=== PATIENT | female | born 1985 | race Caucasian/White ===

== ENCOUNTER 2025-01-28 20:11 | Emergency (ER) | payer MEDICAID, SELFPAY ==
--- OUTSIDE RECORDS SUMMARY | 2025-01-28 20:13 | XMS_ITS | Encounter Summary ---
Author Organization [facility] Address [address] [facility] [place] [address] Care Team Providers Care Entertainment Agent Name Role Phone Lenny Ferrara MD Primary Care Provider [phone] Lenny Ferrara MD Unavailable Sadaf Grider CN Unavailable [phone] Amparo Henderson FARM FIELD MANAGER Unavailable [phone] Encounter Details Date Type Department Care Team (Late st Contact Info) Description 06/07/2024 MyC Medical Advice Initial Department [facility] Social History Tobacco Use Types Packs/Day Years Used Date Smoking Tobacco: Some Days Cigarettes Smokeless Tobacco: Never Alcohol Use Standard Drinks/Week Comments Not Currently 0 (1 standard drink = 0.6 oz pur e alcohol) Social Connection and Isolation Panel [NHANES] A nswer Date Recorded Frequency of Communication with Friends and Fami ly Not on file 06/07/2024 How often do you get together with friends or re latives? Once a week 06/07/2024 Attends Caodaism Services Not on file 06/07 Active Member of Clubs or Organizations Not on f ile 06/07/2024 Attends Club or Organization Meetings Not on evelin e 06/07/2024 Marital Status Not on file 06/07/2024 PHQ-2 Answer Date Recorded PHQ-2 Score 0 05/24/2024 [facility] - Occupational Stress Questionnaire Answer Date Recorded Do you feel stress - tense, restless, nervous, or anxious, or unable to sleep at night because your mind is troubled all the time - these days? Only a little 06/07/2024 Exercise Vital Sign Answer Date Recorde d On average, how many days pe r week do you engage in moderate to strenuous exercise (like a brisk walk)? 3 days 06/07/2024 On average, how many minutes do you engage in exercise at this level? 20 min 06/07/2024 Adolescent Education Answer Date Record ed Getting School Help Needed Not on file 08/19 Food Insecurity Answer Date Recorded Within the past 12 months, d id you worry that your food would run out before you got money to buy more? No 06/07/2024 Within the past 12 months, d id the food you bought just not last and you didn t have money to get more? No 06/07/2024 Housing Stability Answer Date Recorded Do you have housing? (Nathaniel michaud is defined as stable permanent housing and does not include staying ouside in a car, in a tent, in an abandoned building, in an overnight assisted, or couch-surfing.) Yes 06/07/2024 Are you worried about losing your housing? No 06/07/2024 Financial Resource Strain Answer Date R ecorded Within the past 12 months, h ave you or your family members you live with been unable to get utilities (heat, electricity) when it was really needed? No 06/07/2024 Transportation Needs Answer Date Record ed Within the past 12 months, h as lack of transportation kept you from medical appointments, getting your medicines, non-medical meetings or appointments, work, or from getting things that you need? 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 Not on file Not on file Not on file documented as of this encounter Plan of Treatment Not on file documented as of this encounter Visit Diagnoses Not on filedocumented in this encounter Additional Health Concerns Assessment Noted Time PHQ-9 Depression Total Score: 0 05/23/20 24 3:57 PM CDT documented as of this encounter Care Teams Entertainment Agent Relationship Specialty [place] [id number] [place] [address] PCP - General Family Medicine 12/03/20 [place] [id number] [place] [address] Assigned PCP 12/06/20 07/04/24 Sadaf Grider CNM [address] [id number] Assigned OBGYN Provider 05/20/23 Amparo Henderson, FARM FIELD MANAGER [address] [place], [place] [id number] Assigned PCP 07/05/24 documented as of this encounter
--- OUTSIDE RECORDS SUMMARY | 2025-01-28 20:13 | XMS_ITS | Clinical Summary ---
Author Organization [facility] Address [address] [place] [address] Care Team Providers Care Summer Associate Name Role Phone Kamini Ruff BUSINESS SYSTEMS TECHNICIAN Unavailable [phone] Thu Esparza Primary Care Provider [phone] Allergies Active Allergy Reactions Criticality Noted Date Comments Oxycodone-Acetaminophen Rash,Itching 11/24/2008 Medications traZODone (DESYREL) 50 mg tablet Take 1 tablet by mouth at bedtime. 0 06/05/2012 Active lamoTRIgine (LAMICTAL) 25 mg tablet 12/19/2015 Active VITAMIN D2 50,000 unit capsuleIndicati ons:Avitaminosi s D Take 1 capsule by mouth every Monday and . 8 capsule 2 02/13/2017 Active escitalopram oxalate (LEXAPRO) 20 mg tabletIndicatio ns:Alcoholism (HC) Take 1 tablet by mouth every morning. 90 tablet 1 05/08/2017 Active lamoTRIgine (LAMICTAL) 150 mg tabletIndicatio ns:Alcoholism (HC) Take 1 tablet by mouth once daily. 90 tablet 1 05/08/2017 Active traZODone (DESYREL) 50 mg tabletIndicatio ns:Alcoholism (HC) Take 1 tablet by mouth at bedtime if needed for Sleep. 90 tablet 1 05/08/2017 Active HYDROmorphone (DILAUDID) 2 mg tabletIndicatio ns:Cat bite, initial encounter Take 1 tablet by mouth every 4 hours if needed for Pain (for severe pain and discomfort.) 7 tablet 12/02/2017 Active HYDROcodone-vanda taminophen, 5-325 mg, (NORCO) per tablet Take 1-2 tablets by mouth 12/05/2017 Active Hospital, Clinic, or Other Facility Administered Medication Ordered Dose Route Frequency Start Date End Date Status levonorgestrel intrauterine device 1 Device (MIRENA)Indications:Encounter for IUD removal and reinsertion,Contraceptive use 1 Device IU Q 5 YEARS 02/14/2017 Active Active Problems Problem Noted Date Diagnosed Date Alcoholism 05/08/2017 Bipolar affective disorder 05/08/2017 Low grade squamous intraepit helial lesion (LGSIL) on cervical Pap smear 03/30/2016 Overview (03/02/2017): 03/30/2016 LSIL / HPV negative 02/13/2017 NIL / HPV negative Plan: Repeat cotesting in 3 years (DUE 02/2020) 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 Renal disease ranged from microscopic hematuria to end-stage renal failure necessitating dialysis and kidney transplantation. All affected adults had cataracts. 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 1985 b;65(2):397-406). Anxiety state, unspecified 12/20/2012 Contraception - Mirena IUD 02/21/2012 Overview (02/13/2017): New iud placed 02/13/17 good until 02/13/2022 Resolved Problems Problem Noted Date Diagnosed Date Resolved Date Screening for cardiovascular condition 03/24/2016 02/13/2017 Overview (03/24/2016): 03/23/2016 TC 191; TG 166; HDL 57; LDL 101; GLUC 97 Major depressive disorder, s jill episode, unspecified 12/20/2012 02/13/2017 Screening for cervical cancer 02/13/2017 Overview (04/05/2016): 02/26/2016 PAP LSIL; HPV NEG - repeat cotesting in 1 year Immunizations Immunization Administration Dates Next Due Rabavert 12/02/2017 Tdap 07/20/2010 Family History Medical History Relation Name Comments Good Health Father Blood Disease Mother Fechtner syndr ome Relation Name Status Comments Father Mother Social History Tobacco Use Types Packs/Day Years Used Date Smoking Tobacco: Some Days Cigarettes Last attempted to quit: 01/22/2016 Smokeless Tobacco: Never Tobacco Cessation:Counseling Given: Yes Alcohol Use Standard Drinks/Week Comments Yes 0 (1 standard drink = 0.6 oz pur e alcohol) social Comments No Sex and Gender Information Value Date Recorded Sex Assigned at Not on file Legal Sex Female 5:27 AM HOOP 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 Gender Identity Not on file Sexual Orientation Not on file Obstetrics History Para Term AB IAB SAB Ectopic Multiple Livin g Live Births 2 1 0 0 1 0 1 0 0 1 1 Date Outcome GA Total Labor Labor/2nd/3rd Weight Sex Type Anes PTL Hien A1 A5 Name Clin 004 SAB 2006 Para 4.25 kg (9 lb 6 oz) F C-Sec tion N Living Complications:Failure to Pro raven in Second Stage, Intolerance Last Filed Vital Signs Vital Sign Reading Time Taken Comments Blood Pressure 118/82 02/26/2018 5:50 PM CDT Pulse 78 02/26/2018 5:50 PM CDT Temperature 36.3 C (97.3 F) 12/01/2017 11:01 PM HOOP 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 Respiratory Rate 18 02/26/2018 5:50 PM CDT Oxygen Saturation 98% 02/26/2018 5:50 PM CDT Inhaled Oxygen Concentration - - Weight 96.8 kg (213 lb 6.4 oz) 12/01/2017 11:01 PM HOOP 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 Height 175.3 cm (5' 9) 12/01/2017 11:01 PM HOOP 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 Body Mass Index 31.51 12/01/2017 11:01 PM HOOP 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 Plan of Treatment Health Maintenance Due Date Last Done Comments Hepatitis C screening for age 18-79 2001 BMI (ht and wt on same day) for age 18+ 03/23/2017 03/23/2016 Depression screening for age 12+ 05/08/2018 05/08/2017, 02/13/2017, 02/13/2017, Additional history exists Tetanus booster 10/13/2021 10/13/2011, 07/20/2010 COVID-19 vaccine series (2023- season) 2024 12/17/2021, 11/26/2021 Influenza Vaccine (#1) 2024 Pap test for age 21-65 08/05/2024 (Verified in Care Everywhere or Patient Record), 02/13/2017, 02/13/2017, Additional history exists Tdap Completed 07/20/2010 HIV for age 15-65 Completed 2014 Pneumococcal series for age 6-49 Aged Out No longer eligible based on patient's age to complete this topic Procedures Procedure Name Priority Date/Time Associated Diagnosis Comments MANAGER HEAVY DUTY THIN PREP PAP DIAGNOSTIC IMAGED Routine 02/13/2017 2:18 PM CDT Low grade squamous intraepithelial lesion (LGSIL) on cervical Pap smear ANTI HIV 1/2 Routine 2014 1:45 PM CDT Screen for STD (sexually transmitted disease) from Last 3 Months or Most Recently Relevant to Health Maintenance Results * MANAGER HEAVY DUTY THIN PREP PAP DIAGNOSTIC IMAGED (02/13/2017 2:18 PM CDT) Case Report Gynecologic Cytology Report Case: [id number] Authorizing Provider: Thu Esparza NP Collected: 02/13/2017 1418 Ordering Location: [facility] Received: 02/13/2017 1419 First Screen: Gloria Castaneda Rescreen: Hitesh Beverly Specimen: MANAGER HEAVY DUTY ThinPrep Vial Diagnostic, Cervical 02/28/2017 1:43 PM CDT [facility] EN[facility]AL LABORAT[facility] INTERPRETATION/ RESULT NEGATIVE FOR INTRAEPITHELIAL LESION OR MALIGNANCY (NIL) (none) 02/28/2017 1:43 PM CDT [facility]AL [facility] IMEN ADEQUACY Satisfactory for evaluation Endocervical component present 02/28/2017 1:43 PM CDT [facility] HPV REQUEST HPV and PAP 02/28/2017 1:43 PM CDT [facility] Date of LMP 02/06/2017 02/28/2017 1:43 PM CDT [facility] Last Pap Date 03/30/16 02/28/2017 1:43 PM CDT [facility] Last Pap Result LSIL 7 1:43 PM CDT [facility] Abnormal Pap or Magnolia Bx in last 5 years Yes 02/28/2017 1:43 PM CDT [facility] Menstrual Status Irregular Periods 02/28/2017 1:43 PM CDT [facility] Magnolia Bx Done Today No 02/28/2017 1:43 PM CDT [facility] Additional Information None Given 02/28/2017 1:43 PM CDT [facility] Automated Review Successful 02/28/2017 1:43 PM CDT [facility] Comment:Specimen processed s uccessfully by automated compressor station engineer device, ThinPrep Imaging System, [employer] ANCILLARY TESTING MANAGER HEAVY DUTY HPV Ordered, Please see separate report 02/28/2017 1:[address] [facility] Note The pap test is a screening technique, not a diagnostic procedure. It is used primarily to screen for squamous cancers and precursor lesions. Published studies have shown that it is subject to both false negative and false positive results. The pap test should not be used as the sole means to diagnose or exclude pre-malignant and malignant lesions. Interpreted at [facility] ([facility], [facility], [facility], [facility], [facility], [facility], [facility]) 02/28/2017 1:43 PM CDT [facility] Other (Cervical) 02/13/2017 2:18 PM CDT 02/13/2017 2:19 PM CDT us Thu Ramos Vilma PATHOLOGY/CYTOLOGY Final Resu lt [facility] [address] [place] [address], [place] * ANTI HIV 1/2 (2014 1:45 PM CDT) HIV-1/HIV-2 ANTIBODY Non-Reacti ve Non-Reacti ve 03/05/2014 1:44 AM CDT [facility] Blood specimen (specimen) BLOOD SPECIMEN / Unknown Venipuncture / Unknown 2014 1:45 PM CDT 2014 1:45 PM CDT Narrative [facility] - 03/05/2014 1:44 AM CDT HIV-1 p24 and HIV-1/HIV-2 Ab not detected us Eladia Dong MD SEND OUTS Final Result Performing Organization Address City/[facility]/ZIP Co de Phone Number [facility] [address] [place] [address], from Last 3 Months or Most Recently Relevant to Health Maintenance Insurance [phone] [place] [address] [facility] [phone] [place] [address] [employer] [phone] [place] [address] Care Teams Summer Associate Relationship Specialty Start Date End Date Thu Esparza [address] [place] [phone] PCP - General Nurse Practitioner 02/13/17 Kamini Ruff NP [address] [place] [phone] Consulting Physician Nurse Practitioner 03/23/16
--- OUTSIDE RECORDS SUMMARY | 2025-01-28 20:13 | XMS_ITS | Encounter Summary ---
Author Organization [place] Address [facility] [place] [address] Care Team Providers Care Orthopedic Physician Name Role Phone Inocencio Dove MD Unavailable [phone] JosiasLenny michaud MD Primary Care Provider eLnny Ferrara MD Unavailable Sadaf Grider [facility] Unavailable Amparo Henderson [facility] Unavailable [phone] Reason for Visit * Reason Onset Date Comments MyChart Communication 12/03/2020 Encounter Details Date Type Department Care Team (Latest Contact Info) Description 12/03/2020 MyC Medical Advice [facility] [id number] [place] [phone] [place] [id number] [place] [phone] MyChart Communication Social History Tobacco Use Types Packs/Day Years Used Date Smoking Tobacco: Some Days Cigarettes Smokeless Tobacco: Never Alcohol Use Standard Drinks/Week Comments Yes 0 (1 standard drink = 0.6 oz pur e alcohol) every day PHQ-2 Answer Date Recorded PHQ-2 Score 0 12/03/2020 Comments No Sex and Gender Information Value Date Recorded Sex Assigned at Not on file Legal Sex Female 3:36 AM CHECK TOTALER Gender Identity Not on file Sexual Orientation Not on file 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 Unable to assess 12/03/2020 1:59 PM CHECK TOTALER documented as of this encounter Plan of Treatment Not on file documented as of this encounter Visit Diagnoses Not on filedocumented in this encounter Additional Health Concerns Infection Onset Date Last Indicated Resolved Time Rule Out COVID-19 12/03/2020 12/03/2020 12/04/2020 3:31 PM CHECK TOTALER Rule Out COVID-19 11/08/2021 11/08/2021 11/09/2021 1:58 PM CHECK TOTALER Assessment Noted Time PHQ-9 Depression Total Score: 2 12/03/19 11:01 AM CHECK TOTALER documented as of this encounter Care Teams Orthopedic Physician Relationship Specialty Start [place] [address] [place] [address] PCP - General Family Medicine 12/03/20 Inocencio Dove MD [address] [place] [address] Assigned PCP 09/30/18 12/05/20 [place] [address] [place] [address] Assigned PCP 12/06/20 07/04/24 Sadaf Grider CNM [address] [address] Assigned OBGYN Provider 05/20/23 Amparo Henderson REINFORCED CONCRETE INSPECTOR [address] [place] [address] Assigned PCP 07/05/24 documented as of this encounter
--- OUTSIDE RECORDS SUMMARY | 2025-01-28 20:13 | XMS_ITS | Clinical Summary ---
Author Organization [place] Address [address] [facility] [place] [address] Care Team Providers Care Waste Management Engineer Name Role Phone Lneny Ferrara MD Primary Care Provider [phone] Amparo Henderson [facility] Unavailable [phone] Allergies Active Allergy Reactions Criticality Noted Date Comments Aspirin Other (See Comments) 11/04/2010 Low platelets Oxycodone Itching 06/14/2024 Medications lamoTRIgine (LAMICTAL) 150 MG tablet Take 150 mg by mouth every evening Active escitalopram (LEXAPRO) 20 MG tablet Take 20 mg by mouth every evening Active hydrOXYzine (ATARAX) 50 MG tablet TK 1 TO 1 AND 1/2 TS PO HS PRF INSOMNIA 06/02/20 20 Active levonorgestrel (MIRENA) 20 MCG/DAY IUDIndications:En counter for insertion of intrauterine contraceptive device 1 each (20 mcg) by Intrauterine route once Active levonorgestrel (MIRENA) 52 MG (20 mcg/day) IUDIndications:En counter for insertion of intrauterine contraceptive device 1 each by Intrauterine route once Active albuterol (PROAIR HFA/PROVENTIL HFA/VENTOLIN HFA) 108 (90 Base) MCG/ACT inhaler Inhale 2 puffs into the lungs 4 times daily as needed 03/04/20 24 Active ALPRAZolam (XANAX) 0.25 MG tablet Take 0.25 mg by mouth nightly as needed 05/04/20 24 Active cyclobenzaprine (FLEXERIL) 5 MG tablet Take 5 mg by mouth 2 times daily as needed for muscle spasms 11/28/19 24 Active hydrOXYzine (VISTARIL) 50 MG capsule Take 50 mg by mouth at bedtime 05/29/20 24 Active Active Problems Problem Noted Date Diagnosed Date Thrombocytopenia 04/21/2013 Overview (08/14/2015): Problem list name updated by automated process. Provider to review Family history of hypercholesterolemia 2 Moderate major depression 11/04/2010 CARDIOVASCULAR SCREENING; LDL GOAL LESS THAN 160 09/12/2010 Anxiety 04/20/2010 ASCUS on Pap smear 07/31/2008 Overview (08/13/2021): 07/31/08 ASCUS + HPV 12/22/08 [place] atypia 02/21/12 NIL pap 03/30/16 LSIL Pap, Neg HR HPV (care everywhere) 02/13/17 NIL Pap, Neg HR HPV (care everywhere) 08/05/21 NIL Pap, Neg HR HPV Plan 3 year cotest. Immunizations Name Administration Dates Next Due COVID-19 MONOVALENT 12+ (Pfizer) 12/17/2021,11/13 HepB 09/09/2010,07/26/2010 Hepatitis B, Adult (Energix- B/Recombivax HB) 06/14/2024,09/09/2010,07/26/2010 Influenza (IIV3) PF 09/22/2014,08/19/2010 Rabies Vaccine (Imovax) 12/15/2017,12/08/2017, Rabies Vaccine (Rabavert) 12/02/2017 TDAP Vaccine (Adacel) 12/02/2017,07/20/2010 Family History Medical History Relation Comments Family History Negative Other Relation Status Comments Father Alive Mother Alive Other Sister Alive Social History Tobacco Use Types Packs/Day Years Used Date Smoking Tobacco: Some Days Cigarettes Smokeless Tobacco: Never Tobacco Cessation:Ready to Q uit: Not Asked; Counseling Given: Not Answered Alcohol Use Standard Drinks/Week Comments Not Currently 0 (1 standard drink = 0.6 oz pur e alcohol) Social Connection and Isolation Panel [NHANES] A nswer Date Recorded Frequency of Communication with Friends and Fami ly Not on file 06/14/2024 How often do you get together with friends or re latives? Once a week 06/14/2024 Attends Scientology Services Not on file 06/14 Active Member of Clubs or Organizations Not on f ile 06/14/2024 Attends Club or Organization Meetings Not on evelin e 06/14/2024 Marital Status Not on file 06/14/2024 PHQ-2 Answer Date Recorded PHQ-2 Score 0 07/26/2024 [facility] - Occupational Stress Questionnaire Answer Date Recorded Do you feel stress - tense, restless, nervous, or anxious, or unable to sleep at night because your mind is troubled all the time - these days? To some extent 06/14/2024 Exercise Vital Sign Answer Date Recorde d On average, how many days pe r week do you engage in moderate to strenuous exercise (like a brisk walk)? 3 days 06/14/2024 On average, how many minutes do you engage in exercise at this level? 20 min 06/14/2024 Adolescent Education Answer Date Record ed Getting School Help Needed Not on file 08/19 Food Insecurity Answer Date Recorded Within the past 12 months, d id you worry that your food would run out before you got money to buy more? No 06/14/2024 Within the past 12 months, d id the food you bought just not last and you didn t have money to get more? No 06/14/2024 Housing Stability Answer Date Recorded Do you have housing? (Nathaniel g is defined as stable permanent housing and does not include staying ouside in a car, in a tent, in an abandoned building, in an overnight nursing home, or couch-surfing.) Yes 06/14/2024 Are you worried about losing your housing? No 06/14/2024 Financial Resource Strain Answer Date R ecorded Within the past 12 months, h ave you or your family members you live with been unable to get utilities (heat, electricity) when it was really needed? No 06/14/2024 Transportation Needs Answer Date Record ed Within the past 12 months, h as lack of transportation kept you from medical appointments, getting your medicines, non-medical meetings or appointments, work, or from getting things that you need? 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 Not on file Not on file Not on file Last Filed Vital Signs Vital Sign Reading Time Taken Comments Blood Pressure 124/78 06/14/2024 9:26 AM CDT Pulse 77 06/14/2024 9:26 AM CDT Temperature 36.9 C (98.4 F) 06/14/2024 9:26 AM CDT Respiratory Rate 18 06/14/2024 9:26 AM CDT Oxygen Saturation 96% 06/14/2024 9:26 AM CDT Inhaled Oxygen Concentration - - Weight 95.3 kg (210 lb) 06/14/2024 9:26 AM CDT Height 172.7 cm (5' 8) 06/14/2024 9:26 AM CDT Body Mass Index 31.93 06/14/2024 9:26 AM CDT Plan of Treatment Health Maintenance Due Date Last Done Comments Pneumococcal Vaccine: Pediatrics (0 to 5 Years) and At-Risk Patients (6 to 49 Years) (1 of 2 - PCV) 2002 ANNUAL REVIEW OF HM ORDERS 12/29/2023 12/29/2022, COVID-19 Vaccine ( season) 2024 12/17/2021, 11/26/2021 INFLUENZA VACCINE (#1) 2024 (Declined), 09/22/2014, 08/19/2010 HPV FOLLOW-UP 08/05/2024 08/05/2021 PAP FOLLOW-UP 08/05/2024 08/05/2021, 02/11, 07/31/2009 PHQ-9 01/23/2025 07/26/2024, 0712/2023, 12/29/2022, Additional history exists NICOTINE/TOBACCO CESSATION COUNSELING Q 1 YR 06/14/2025 06/14/2024, 08/05/2021, 04/18/2013 YEARLY PREVENTIVE VISIT 06/14/2025 06/14/2024, 08/05 MAMMO SCREENING 06/15/2026 06/15/2024 GLUCOSE 06/15/2027 06/15/2024, 07/15, 05/04/2017, Additional history exists DTAP/TDAP/TD IMMUNIZATION (3 - Td or Tdap) 12/02/2027 12/02/2017, 07/20/2010 ADVANCE CARE PLANNING 06/14/2029 06/14/2024 LIPID 06/15/2029 06/15/2024, 08/05/2021 ZOSTER IMMUNIZATION (1 of 2) 2033 DEPRESSION ACTION PLAN Completed 5, 01/19/2015, 04/21/2013, Additional history exists PAP Discontinued 08/05/2021, 02/11, 07/31/2009 HEPATITIS B IMMUNIZATION Completed 024, 09/09/2010, 09/09/2010, Additional history exists HEPATITIS C SCREENING Completed 06/15/2024 HIV SCREENING Discontinued 06/15/2024, 2014 HPV IMMUNIZATION Aged Out No longer e ligible based on patient's age to complete this topic MENINGITIS IMMUNIZATION Aged Out No l onger eligible based on patient's age to complete this topic Procedures Procedure Name Priority Date/Time Associated Diagnosis Comments MA SCREENING BILATERAL W/ SREEKANTH Routine 06/15/2024 10:45 AM CDT Visit for screening mammogram COMPREHENSIVE METABOLIC PANEL Routine 06/15/2024 10:19 AM CDT Encounter for preventive health examination Lipid screening HIV ANTIGEN ANTIBODY COMBO Routine 06/15/2024 10:19 AM CDT Screening for HIV (human immunodeficiency virus) HEPATITIS C SCREEN REFLEX TO HCV RNA QUANT AND GENOTYPE Routine 06/15/2024 10:19 AM CDT Need for hepatitis C screening test LIPID REFLEX TO DIRECT LDL PANEL Routine 06/15/2024 10:19 AM CDT Encounter for preventive health examination Lipid screening HPV HIGH RISK TYPES DNA CERVICAL Routine 08/05/2021 5:32 PM CDT Cervical cancer screening GYNECOLOGIC CYTOLOGY Routine 08/05/2021 5:32 PM CDT Cervical cancer screening from Last 3 Months or Most Recently Relevant to Health Maintenance Results * MA Screening Bilateral w/ Sreekanth (06/15/2024 10:45 AM CDT) Anatomical Region Laterality Modality Breast Bilateral Mammography Impressions 06/17/2024 8:12 AM CDT IMPRESSION: ACR BI-RADS Category 1: Negative BREAST CANCER SCREENING RECOMMENDATION: Routine yearly mammography beginning at age 40 or as discussed with your provider. The results and recommendations of this examination will be communicated to the patient. Roney Breaux MD Narrative 06/17/2024 8:12 AM CDT BILATERAL FULL FIELD DIGITAL SCREENING MAMMOGRAM WITH TOMOSYNTHESIS Performed on: 06/15/24 No comparisons were made when reading this study. Technique: This study was evaluated with the assistance of Computer-Aided Detection. Breast Tomosynthesis was used in interpretation. Findings: The breasts are heterogeneously dense, which may obscure small masses. There is no radiographic evidence of malignancy. us Lenny Ferrara MD IMG MAMMOGRAPHY ORDERABLES Final Result * HIV Antigen Antibody Combo (06/15/2024 10:19 AM CDT) HIV Antigen Antibody Combo Nonreactive Nonreactive 06/16/2024 4:43 PM CDT LABORATORY Comment:Negative HIV-1 p24 a ntigen and HIV-1/2 antibody screening test results usually indicate the absence of HIV-1 and HIV-2 infection. However, such negative results do not rule-out acute HIV infection. If acute HIV-1 or HIV-2 infection is suspected, detection of HIV-1 or HIV-2 RNA is recommended. Blood BLOOD SPECIMEN / Unknown Venipuncture / Unknown 06/15/2024 10:19 AM CDT 06/15/2024 10:19 AM CDT us Amparo Henderson [facility]EARCH & INSIGHTS EXECUTIVE LAB - BLOOD ORDERABLES Final R esult U LABORATORY [facility] [address] [facility], [address] [place] [phone], [facility] * Hepatitis C Screen Reflex to HCV RNA Quant and Genotype (06/15/2024 10:19 AM CDT) Hepatitis C Antibody Nonreactive Nonreactive 06/16/2024 3:25 PM CDT UU LABORATORY Comment:A nonreactive screen ing test result does not exclude the possibility of exposure to or infection with HCV. Nonreactive screening test results in individuals with prior exposure to HCV may be due to antibody levels below the limit of detection of this assay or lack of reactivity to the HCV antigens used in this assay. Patients with recent HCV infections (<3 months from time of exposure) may have false- negative HCV antibody results due to the time needed for seroconversion (average of 8 to 9 weeks). Blood BLOOD SPECIMEN / Unknown Venipuncture / Unknown 06/15/2024 10:19 AM CDT 06/15/2024 10:19 AM CDT us Amparo Henderson RESEARCH & INSIGHTS EXECUTIVE LAB - BLOOD ORDERABLES Final R esult [facility] LABORATORY [facility] Lab [address] [facility], [address] [address] * (ABNORMAL) Lipid panel reflex to direct LDL Fasting (06/15/2024 10:19 AM CDT) Cholesterol 205(H) <200 mg/dL 06/16/2024 3:13 PM CDT [facility] LABORATORY Triglycerides 146 <150 mg/dL 06/16/2024 3:13 PM CDT [facility] LAB[facility] Direct Measure HDL 60 >=50 mg/dL 06/16/2024 3:13 PM CDT [facility] LAB[facility]AT[facility] LDL Cholesterol Calculated 116(H) <=100 mg/dL 06/16/2024 3:13 PM CDT [facility] LAB[facility]ATORY Non HDL Cholesterol 145(H) <130 mg/dL 06/16/2024 3:13 PM CDT [facility] LAB[facility]ATORY Patient Fasting > 8hrs? No 06/16/2024 3:13 PM CDT OX LABORATORY Blood BLOOD SPECIMEN / Unknown Venipuncture / Unknown 06/15/2024 10:19 AM CDT 06/15/2024 10:19 AM CDT Narrative [facility] LAB[facility]ATORY - 06/16/2024 3:13 PM CDT Cholesterol Desirable: <200 mg/dL Triglycerides Normal: Less than 150 mg/dL Borderline High: 150-199 mg/dL High: 200-499 mg/dL Very High: Greater than or equal to 500 mg/dL Direct Measure HDL Female: Greater than or equal to 50 mg/dL Male: Greater than or equal to 40 mg/dL LDL Cholesterol Desirable: <100mg/dL Above Desirable: 100-129 mg/dL Borderline High: 130-159 mg/dL High: 160-189 mg/dL Very High: >= 190 mg/dL Non HDL Cholesterol Desirable: 130 mg/dL Above Desirable: 130-159 mg/dL Borderline High: 160-189 mg/dL High: 190-219 mg/dL Very High: Greater than or equal to 220 mg/dL us Amparo Hnederson RESEARCH [facility] INSIGHTS EXECUTIVE LAB - BLOOD ORDERABLES Final R esult [facility] LABORATORY [facility] Core Lab [address] [facility], [address] [place] [address], [facility] OX LABORATORY [facility] [address] Lab (no room number, 1st floor of clinic) [place] [address], [facility] [phone] * Comprehensive metabolic panel (BMP + Alb, Alk Phos, ALT, AST, Total. Bili, TP) (06/15/2024 10:19 AMCDT) Sodium 138 135 - 145 mmol/L 06/16/2024 3:13 PM CDT [facility] LABORATORY Potassium 4.3 3.4 - 5.3 mmol/L 06/16/2024 3:13 PM CDT [facility] LAB[facility]ATORY Carbon Dioxide (CO2) 25 22 - 29 mmol/L 06/16/2024 3:13 PM CDT [facility] LAB[facility] Anion Gap 9 7 - 15 mmol/L 06/16/2024 3:13 PM CDT [facility] Urea Nitrogen 11.0 6.0 - 20.0 mg/dL 06/16/2024 3:13 PM CDT [facility] LAB[facility] Creatinine 0.73 0.51 - 0.95 mg/dL 06/16/2024 3:13 PM CDT [facility] LAB[facility] GFR Estimate >90 >60 mL/min/1.7 3m2 06/16/2024 3:13 PM CDT [facility] LABORATORY Comment:eGFR calculated 2020 CKD-EPI equation. Calcium 9.1 8.8 - 10.4 mg/dL 06/16/2024 3:13 PM CDT [facility] LAB[facility]ATORY Comment:Reference intervals for this test were updated on 05/28/2024 to reflect our healthy population more accurately. There may be differences in the flagging of prior results with similar values performed with this method. Those prior results can be interpreted in the context of the updated reference intervals. Chloride 104 98 - 107 mmol/L 06/16/2024 3:13 PM CDT [facility] Glucose 85 70 - 99 mg/dL 06/16/2024 3:13 PM CDT [facility] Alkaline Phosphatase 89 40 - 150 U/L 06/16/2024 3:13 PM CDT [facility] AST 19 0 - 45 U/L 06/16/2024 3:13 PM CDT [facility] ALT 19 0 - 50 U/L 06/16/2024 3:13 PM CDT [facility] LAB[facility] Protein Total 6.8 6.4 - 8.3 g/dL 06/16/2024 3:13 PM CDT [facility] Albumin 4.1 3.5 - 5.2 g/dL 06/16/2024 3:13 PM CDT [facility] Bilirubin Total 0.3 <=1.2 mg/dL 06/16/2024 3:13 PM CDT [facility] LAB[facility]AT[facility] Patient Fasting > 8hrs? No 06/16/2024 3:13 PM CDT OX LABORATORY Blood BLOOD SPECIMEN / Unknown Venipuncture / Unknown 06/15/2024 10:19 AM CDT 06/15/2024 10:19 AM CDT us Amparo Henderson RESEARCH & INSIGHTS EXECUTIVE LAB - BLOOD ORDERABLES Final R esult [facility]U LABORATORY [facility] [address] [facility], [address] [place] [address], [facility] OX LABORATORY [facility] Lab [address] Lab (no room number, 1st floor of clinic) [place] [address], [facility] [phone] * Pap Screen with HPV - recommended age 30 - 65 years (08/05/2021 5:32 PM CDT) Interpretation Negative for Intraepithelial Lesion or Malignancy (NILM) 08/10/2021 1:17 PM CDT [facility] LABORATORY Specimen Adequacy Satisfactory for evaluation, endocervical/abrams sformation zone component present 08/10/2021 1:17 PM CDT [facility] LABORATORY Clinical Information none 08/10/2021 1:17 PM CDT [facility] LABORATORY Reflex Testing Yes regardless of result 08/10/2021 1:17 PM CDT [facility] LABORATORY Previous Abnormal? No 08/10/2021 1:17 PM CDT [facility] Performing Labs The technical component of this testing was completed at [facility] Laboratory 08/10/2021 1:17 PM CDT [facility] LABORATORY Brushing CERVIX UTERI STRUCTURE / Unknown Non-blood Collection / Unknown 08/05/2021 5:32 PM CDT 08/05/2021 6:26 PM CDT us [facility] Final Result [facility] [address] [place] [address], [facility] [phone] * HPV High Risk Types DNA Cervical (08/05/2021 5:32 PM CDT) Other HR HPV Negative Negative 08/12/2021 1:44 PM CDT [facility] HPV16 DNA Negative Negative 08/12/2021 1:44 PM CDT [facility] HPV18 DNA Negative Negative 08/12/2021 1:44 PM CDT [facility] FINAL DIAGNOSIS This patient's sample is negative for HPV DNA. This test was developed and its performance characteristics determined by the [facility]. It has not been cleared or approved by the FDA. The laboratory is regulated under CLIA as qualified to perform high-complexity testing. This test is used for clinical purposes. It should not be regarded as investigational or for research. METHODOLOGY: The Brittani Elmer 4800 system uses automated extraction, simultaneous amplification of HPV (L1 region) and beta-globin, followed by real time detection of fluorescent labeled HPV and beta globin using specific oligonucleotide probes. The test specifically identified types HPV 16 DNA and HPV 18 DNA while concurrently detecting the rest of the high risk types (31, 33, 35, 39, 45, 51, 52, 56, 58, 59, 66 or 68). COMMENTS: This test is not intended for use as a screening device for woman under age 30 with normal cervical cytology. Results should be correlated with cytologic and histologic findings. Close clinical followup is recommended. 08/12/2021 1:44 PM CDT [facility] Brushing CERVIX UTERI STRUCTURE / Unknown Non-blood Collection / Unknown 08/05/2021 5:32 PM CDT 08/11/2021 7:56 AM CDT us Lenny Ferrara MD LAB - BLOOD ORDERABLES Final Res ult [facility] Molecular Diagnostics Lab [address] [facility], [address] [place] [address], [facility] [phone] from Last 3 Months or Most Recently Relevant to Health Maintenance Insurance [facility] COMMERCIAL [employer] Care Teams Waste Management Engineer Relationship Specialty [place] [address] [place] [address] PCP - General Family Medicine 12/03/20 Amparo Henderson RESEARCH & INSIGHTS EXECUTIVE [address] [place] [address] Assigned PCP 07/05/24
--- OUTSIDE RECORDS SUMMARY | 2025-01-28 20:13 | XMS_ITS | Encounter Summary ---
Author Organization [place] Address [facility] [place] [address] Care Team Providers Care Silviculture Forester Name Role Phone Lenny Ferrara MD Primary Care Provider Lenny Ferrara MD Unavailable Sadaf Grider [facility] Unavailable [phone] Amparo Henderson [facility] Unavailable [phone] Reason for Visit * Reason Onset Date Comments Appointment 07/21/2022 IUD put in Encounter Details Date Type Department Care Team (Late st Contact Info) Description 07/21/2022 Telephone [facility] [id number] [place] [phone] [place] [address] [place] [address] Appointment (IUD put in) Social History Tobacco Use Types Packs/Day Years Used Date Smoking Tobacco: Some Days Cigarettes Smokeless Tobacco: Never Alcohol Use Standard Drinks/Week Comments Not Currently 0 (1 standard drink = 0.6 oz pur e alcohol) PHQ-2 Answer Date Recorded PHQ-2 Score 0 08/05/2021 Comments No Sex and Gender Information Value Date Recorded Sex Assigned at Not on file 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 Gender Identity Not on file Sexual Orientation Not on file 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 Yes Additional comments: needs before 09/01 due to surgery Can we leave a detailed message on this number? YES Phone number patient can be reached at: Home number on file [phone] (home) Best Time: anytime mid or Fridays Call taken on 07/21/2022 at 11:06 AM by Kristy Emanuel documented in this encounter Plan of Treatment Not on file documented as of this encounter Visit Diagnoses Not on filedocumented in this encounter Additional Health Concerns Assessment Noted Time PHQ-9 Depression Total Score: 5 08/06/20 21 7:03 AM CDT documented as of this encounter Care Teams Silviculture Forester Relationship Specialty [place] [address] [place] [address] PCP - General Family Medicine 12/03/20 [place] [address] [place] [address] Assigned PCP 12/06/20 07/04/24 Sadaf Grider CNM [address] [address] Assigned OBGYN Provider 05/20/23 Amparo Henderson, SIZE WORKER [address] [place] [address] Assigned PCP 07/05/24 documented as of this encounter
--- OUTSIDE RECORDS SUMMARY | 2025-01-28 20:13 | XMS_ITS | Encounter Summary ---
Author Organization [place] Address [address] [place] [address] Care Team Providers Care Ceo & Board Director Name Role Phone Lenny Ferrara MD Primary Care Provider [phone] Lenny Ferrara MD Unavailable Sadaf Grider CN Unavailable [phone] Amparo Henderson HALL CLERK Unavailable [phone] Encounter Details Date Type Department Care [...] re latives? 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 Henderson Please see results for this patient as the lab results are critical Madyson Bustamante CMA on 06/15/2024 at 10:54 AM documented in this encounter Plan of Treatment Not on file documented as of this encounter Visit Diagnoses Not on filedocumented in this encounter Additional Health Concerns Assessment Noted Time PHQ-9 Depression Total Score: 0 05/23/20 3:57 PM CDT documented as of this encounter Care Teams Ceo & Board Director Relationship Specialty [place] [address] [place] [address] PCP - General Family Medicine 12/03/20 [place] [address] [place] [address] Assigned PCP 12/06/20 07/04/24 Sadaf Grider CNM [address] [id number] Assigned OBGYN Provider 05/20/23 Amparo Henderson, HALL CLERK [address] [place] [address] Assigned PCP 07/05/24 documented as of this encounter
--- OUTSIDE RECORDS SUMMARY | 2025-01-28 20:13 | XMS_ITS | Encounter Summary ---
Author Organization [place] Address [facility] [place] [address] Care Team Providers Care Surgery Tech Name Role Phone Lenny Ferrara MD Primary Care Provider [phone] Lenny Ferrara MD Unavailable Sadaf Grider [facility] Unavailable Amparo Henderson [facility] Unavailable [phone] Encounter Details Date Type Department Care Team (Late st Contact Info) Description 07/27/2021 MyC Medical Advice [facility] [id number] [place] [phone] [place] [id number] [place] [address] Social History Tobacco Use Types Packs/Day Years Used Date Smoking Tobacco: Some Days Cigarettes Smokeless Tobacco: Never Alcohol Use Standard Drinks/Week Comments Yes 0 (1 standard drink = 0.6 oz pur e alcohol) every day PHQ-2 Answer Date Recorded PHQ-2 Score 0 12/10/2020 Comments No Sex and Gender Information Value Date Recorded Sex Assigned at Not on file Legal Sex Female 3:36 AM MAJOR SALES ASSOCIATE Gender Identity Not on file Sexual Orientation Not on file 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 Not on file Not on file Not on file documented as of this encounter Plan of Treatment Not on file documented as of this encounter Visit Diagnoses Not on filedocumented in this encounter Additional Health Concerns Infection Onset Date Last Indicated Resolved Time Rule Out COVID-19 11/08/2021 11/08/2021 11/09/2021 1:58 PM MAJOR SALES ASSOCIATE Assessment Noted Time PHQ-9 Depression Total Score: 2 12/03/19 21 11:01 AM MAJOR SALES ASSOCIATE documented as of this encounter Care Teams Surgery Tech Relationship Specialty [place] [address] [place] [address] PCP - General Family Medicine 12/03/20 [place] [address] [place] [address] Assigned PCP 12/06/20 07/04/24 Sadaf Grider CNM [address] [address] Assigned OBGYN Provider 05/20/23 Amparo Henderson, PRODUCT SAFETY COORDINATOR [address] [place], [place] [address] Assigned PCP 07/05/24 documented as of this encounter
--- OUTSIDE RECORDS SUMMARY | 2025-01-28 20:13 | XMS_ITS | Encounter Summary ---
Author Organization [place] Address [address] [facility] [facility] [place] [address] Care Team Providers Care Manager Credit Name Role Phone Klaus Pablo MD Primary Care Provider Unavailable Clinic, [facility]o Escudero Primary Care Provider [phone] TryInocencio allred MD Unavailable [phone] Inocencio Dove MD Unavailable [phone] No Ref-Primary, Physician Primary Care Provider Lenny Ferrara MD Primary Care Provider [phone] Lenny Ferrara MD Unavailable Sadaf Grider CN Unavailable [phone] Amparo Henderson SENIOR PROJECT ENGINEER Unavailable [phone] Encounter Details Date Type Department Care Team (Late st Contact Info) Description 02/19/2016 MyC Medical Advice [address] [address] Israel Sarmiento, [facility] Social History Tobacco Use Types Packs/Day Years Used Date Smoking Tobacco: Some Days Cigarettes Smokeless Tobacco: Never Alcohol Use Standard Drinks/Week Comments Yes 0 (1 standard drink = 0.6 oz pur e alcohol) occassionally Comments No Sex and Gender Information Value Date Recorded Sex Assigned at Not on file Legal Sex Female 3:36 AM MEDICAL OFFICE SUPERVISOR Gender Identity Not on file Sexual Orientation Not on file 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 file Not on file Not on file documented as of this encounter Plan of Treatment Not on file documented as of this encounter Visit Diagnoses Not on filedocumented in this encounter Additional Health Concerns Infection Onset Date Last Indicated Resolved Time Rule Out COVID-19 07/24/2020 07/24/2020 07/25/2020 8:16 PM CDT Rule Out COVID-19 12/03/2020 12/03/2020 12/04/2020 3:31 PM MEDICAL OFFICE SUPERVISOR Rule Out COVID-19 11/08/2021 11/08/2021 11/09/2021 1:58 PM MEDICAL OFFICE SUPERVISOR documented as of this encounter Care Teams Manager Credit Relationship Specialty Start Date End Date Klaus Pablo MD PCP - General Family Practice 12/30/10 12/11/[address] [address] PCP - General 05/04/17 07/23/20 Inocencio Dove MD [address] [place] [address] PCP - Assigned PCP 12/16/18 01/15/19 No Ref-Primary, Physician PCP - General 07/24/20 12/02/20 [place] [address] [place] [address] PCP - General Family Medicine 12/03/20 Inocencio Dove MD [address] [place] [address] Assigned PCP 09/30/18 12/05/20 [place] [address] [place] [address] Assigned PCP 12/06/20 07/04/24 Sadaf Grider CNM [address] [facility] [address] [place], [place] [address] Assigned OBGYN Provider 05/20/23 Amparo Henderson, SENIOR PROJECT ENGINEER [address] [place], [place] [address] Assigned PCP 07/05/24 documented as of this encounter
--- OUTSIDE RECORDS SUMMARY | 2025-01-28 20:13 | XMS_ITS | Encounter Summary ---
Author Organization [place] Address [address] [place] [address] Care Team Providers Care Oyster Preparer Name Role Phone Lenny Ferrara MD Primary Care Provider [phone] Lenny Ferrara MD Unavailable Sadaf Grider CN Unavailable [phone] Amparo Henderson [facility] Unavailable [phone] Encounter Details Date Type Department Care Team (Late st Contact Info) Description 07/21/2022 [facility] Medical Advice [address] [address] Elif Anaya Social History Tobacco Use Types Packs/Day Years Used Date Smoking Tobacco: Some Days Cigarettes Smokeless Tobacco: Never Alcohol Use Standard Drinks/Week Comments Not Currently 0 (1 standard drink = 0.6 oz pur e alcohol) PHQ-2 Answer Date Recorded PHQ-2 Score 0 08/05/2021 Comments No Sex and Gender Information Value Date Recorded Sex Assigned at Not on file Legal Sex Female 3:36 AM PRODUCTION MACHINE COMPUTER OPERATOR Gender Identity Not on file Sexual Orientation Not on file 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 file Not on file Not on file documented as of this encounter Plan of Treatment Not on file documented as of this encounter Visit Diagnoses Not on filedocumented in this encounter Additional Health Concerns Assessment Noted Time PHQ-9 Depression Total Score: 5 08/06/20 21 7:03 AM CDT documented as of this encounter Care Teams Oyster Preparer Relationship Specialty [place] [address] [place] [address] PCP - General Family Medicine 12/03/20 [place] [address] [place] [address] Assigned PCP 12/06/20 07/04/24 Sadaf Grider CNM [address] [address] Assigned OBGYN Provider 05/20/23 Amparo Henderson, CATH LAB NURSE [address] [place] [address] Assigned PCP 07/05/24 documented as of this encounter
--- OUTSIDE RECORDS SUMMARY | 2025-01-28 20:13 | XMS_ITS | Encounter Summary ---
Author Organization [place] Address formerly [facility] [place] [address] Care Team Providers Care Patrol Conductor Name Role Phone Lenny Ferrara MD Primary Care Provider Lenny Ferrara MD Unavailable Sadaf Grider [facility] Unavailable Amparo Henderson [facility] Unavailable [phone] Encounter Details Date Type Department Care Team (Late st Contact Info) Description 07/27/2021 MyC Medical Advice [facility] [address] [place] [phone] [place]enny [place]ara [place] [id number] [place] [address] Social History Tobacco Use Types Packs/Day [...] file Legal Sex Female 3:36 AM MEDICAL RECORD CONSULTANT Gender Identity Not on file Sexual Orientation Not on file 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 Not on file Not on file Not on file documented as of this encounter Plan of Treatment Not on file documented as of this encounter Visit Diagnoses Not on filedocumented in this encounter Additional Health Concerns Infection Onset Date Last Indicated Resolved Time Rule Out COVID-19 11/08/2021 11/08/2021 11/09/2021 1:58 PM MEDICAL RECORD CONSULTANT Assessment Noted Time PHQ-9 Depression Total Score: 2 12/03/19 21 11:01 AM MEDICAL RECORD CONSULTANT documented as of this encounter Care Teams Patrol Conductor Relationship Specialty [place] [address] [place] [address] PCP - General Family Medicine 12/03/20 [place] [address] [place] [address] Assigned PCP 12/06/20 07/04/24 Sadaf Grider CNM [address] [address] Assigned OBGYN Provider 05/20/23 Amparo Henderson, CUSTOMER ADVISOR SPECIALIST [address] [place], [place] [address] Assigned PCP 07/05/24 documented as of this encounter
[2025-01-28 20:14] VITALS: BP 120/81; PULSE 68; RESP 18; TEMP 35.6; O2SAT 96; BMI 30.8
--- NOTE | 2025-01-28 20:25 | ED_ITS ---
HPI - General Adult General Time Seen by Provider: 20:25 Date Seen: 01/28/25 Chief complaint: Shortness of Breath/Dyspnea Stated complaint: trouble breathing Time Seen by Provider: 01/28/25 20:25 Source: patient, family and RN notes reviewed Mode of arrival: ambulatory Limitations: no limitations History of Present Illness HPI narrative: Augusta is a 39-year-old female previously healthy who comes to the emergency room with her father for evaluation regarding cough congestion sore throat ear pain and chest pain. Augusta notes the onset of a sore throat approximately 48 hours ago in association with runny nose. She does not know if she has had a fever cause she has been taking ibuprofen but does not feel well. 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 She has been coughing and producing yellow sputum. She does not know of any ill contacts but [place]. She does not smoke nor does she have asthma. She notes that her chest hurts and the upper aspect. No nausea vomiting diarrhea. Augusta also notes that her ears hurt. However she has been dealing with this for quite some time. She describes episodes where she feels like she is in a tunnel and she has a hard time hearing. She has not seen ENT for this. Review of Systems Status of ROS: Reports: 10 or more systems reviewed and unremarkable except as noted in History and below Const: Reports: chills and fatigue Eyes: Denies: change in vision ENMT: Reports: throat pain, difficulty swallowing and nasal congestion; Denies: neck pain or throat swelling Cardio: Reports: chest pain; Denies: swelling of feet/ankles, lightheadedness or shortness of breath with exertion Resp: Reports: cough; Denies: shortness of breath or wheezing GI: Reports: difficulty swallowing; Denies: vomiting : Denies: painful urination Musculo: Denies: neck pain Integ/Breast: Denies: rash Neuro: Denies: headache Endo: Reports: fatigue Allergy/Immuno: Denies: throat swelling or wheezing Exam Narrative: Exam Narrative: Alert and oriented. Fatigued but nontoxic in appearance. Eyes are clear. Left TM shows some dullness of the reflex and erythema and some fluid in the inferior posterior aspect behind the TM. Right TM shows increased erythema in the middle aspect of the TM no fluid is noted. Oral cavity shows increased erythema but no exudate. Neck is supple without lymphadenopathy. Heart with regular rate and rhythm. Lungs show a few crackles in the bases left greater than right. Abdomen soft. Lower extremities without edema. Moving all extremities. Mentating normally. Const: Vital Signs, click to edit/add: Vital Signs - 24 hr 01/28/25 20:14 Temperature 96.1 F L Pulse Rate [Pulse Oximeter] 68 Respiratory Rate 18 Blood Pressure [Ri ght Upper Arm] 120/81 Pulse Oximetry 96 Oxygen Delivery Me thod Room Air Documenting provider has reviewed patient's vital signs: yes Course Course ED Course: For diagnosis includes but is not limited to pneumonia, bronchitis, COVID, influenza, RSV, other URI. Chest pain appears to be related to coughing and current illness. No previous history DVT, PE, underlying cardiac issues. I do not think that the chest discomfort is cardiac related. At this time triple viral swab is pending and will add chest x-ray to orders. Reevaluation(s) Reevaluation #1: Triple swab is negative and x-ray without evidence of infiltrate. Vital Signs Vital signs: Initial Vital Signs Temperature 96.1 F L 01/28/25 20:14 Temperature Source Temporal Artery Scan 01/28/25 20:14 Pulse Rate 68 01/28/25 20:14 Respiratory Rate 18 01/28/25 20:14 Blood Pressure 120/81 01/28/25 20:14 Blood Pressure Mean 94 01/28/25 20:14 Pulse Oximetry 96 01/28/25 20:14 Oxygen Delivery Method Room Air 01/28/25 20:14 Vital Signs Temperature 96.1 F L 01/28/25 20:14 Pulse Rate 68 01/28/25 20:14 Respiratory Rate 18 01/28/25 20:14 Blood Pressure 120/81 01/28/25 20:14 Pulse Oximetry 96 01/28/25 20:14 Oxygen Delivery Method Room Air 01/28/25 20:14 Temperature 96.1 F L 01/28/25 20:14 Pulse Rate 68 01/28/25 20:14 Respiratory Rate 18 01/28/25 20:14 Blood Pressure 120/81 01/28/25 20:14 Pulse Oximetry 96 01/28/25 20:14 Oxygen Delivery Method Room Air 01/28/25 20:14 Medical Decision Making MDM Narrative Medical decision making narrative: 1. Left otitis media-amoxicillin is prescribed through [facility] Because of description of previous tinnitus, occasional hearing loss have also asked her to follow-up with our ENT when she is feeling better. 2. URI-no evidence of pneumonia on x-ray. 3. Disposition-home at this time. Did provide note for school in the hopes that they will give her an excuse as she is contagious with what ever viral illness this may be. Return or seek medical attention for worsening symptoms. Recommend follow-up with our ENT for the episodes of tinnitus that she is describing. Return for worsening symptoms and as needed. Lab Data Lab results reviewed: Yes I reviewed the patient's lab results Lab results narrative: Negative for COVID influenza RSV and strep Labs: Lab Results 01/28/25 Range/Units 20:20 SARS-CoV-2 (PCR) Negative SARS-CoV-2 (Negative) Influenza Type A (PCR) Negative PCR FLU A (Negative) Influenza Type B (PCR) Negative PCR FLU B (Negative) RSV (PCR) Negative PCR RSV (Negative) Group A Strep DNA NOT DETECTED (Not Detectd) Imaging Data Chest x-ray: Attestation: I have reviewed the pertinent imaging results. My impression: I do not note any infiltrates on my review. Radiologist's impression: Cardiac silhouette is magnified. Cardiomediastinal contours are grossly within normal limits. No definite confluent airspace opacity. No pleural effusion or pneumothorax. No acute osseous abnormality. Discharge Plan Discharge Clinical Impression: Acute left otitis media URI (upper respiratory infection) Qualifiers: URI type: unspecified viral URI Qualified Code(s): J06.9 - Acute upper respiratory infection, unspecified Patient Disposition: Home, Self-Care Condition: Unchanged Additional Instructions: Recommend the use of amoxicillin for treatment of ear infection. This is in our vending machine. At this time likely you have a virus causing her cough and sore throat as the strep test and viral swabs were negative. Ibuprofen or Tylenol as needed for discomfort. Seek medical attention for fever worsening symptoms and as needed. Note for your school describing her illness. I hope that this helps. Dr Choe is our ENT. Appointments can be made at [phone] Follow Up/Referrals: Provider,Not a Local [Primary Care Provider] - Stand Alone Forms: [employer] Info Instructions
--- NOTE | 2025-01-28 20:36 | CRLHL7_ITS ---
For Patients: As a result of the Century Cures Act, medical imaging exams and procedure reports are released immediately into your electronic medical record. You may view this report before your referring provider. If you have questions, please contact your health care provider. Indication: Cough. Technique: Chest 1 view. Comparison: None. Findings/Impression: Cardiac silhouette is magnified. Cardiomediastinal contours are grossly within normal limits. No definite confluent airspace opacity. No pleural effusion or pneumothorax. No acute osseous abnormality. Dictated by Florin Rainey MD @ 01/28/2025 9:37:05 PM (Electronically Signed)
[2025-01-28 20:54] LABS: Strep A DNA Probe* NOT DETECTED (Not Detectd)
--- OUTSIDE RECORDS SUMMARY | 2025-01-28 21:05 | XMS_ITS | Encounter Summary ---
Author Organization [place] Address [facility] [place] [address] Care Team Providers Care Dynamiter Name Role Phone Inocencio Dove MD Unavailable JosiasLenny michaud MD Primary Care Provider Lenny Ferrara MD Unavailable Sadaf Grider [facility] Unavailable [phone] Amparo Henderson [facility] Unavailable [phone] Reason for Visit * Reason Onset Date Comments MyChart Communication 12/03/2020 Encounter Details Date Type Department Care Team (Latest Contact Info) Description 12/03/2020 MyC Medical Advice [facility] [address] [place] [phone] [place] [address] [place] [address] MyChart Communication Social History Tobacco Use [...] on file Legal Sex Female 3:36 AM RN IMCU Gender Identity Not on file Sexual Orientation Not on file 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 Unable to assess 12/03/2020 1:59 PM RN IMCU documented as of this encounter Plan of Treatment Not on file documented as of this encounter Visit Diagnoses Not on filedocumented in this encounter Additional Health Concerns Infection Onset Date Last Indicated Resolved Time Rule Out COVID-19 12/03/2020 12/03/2020 12/04/2020 3:31 PM RN IMCU Rule Out COVID-19 11/08/2021 11/08/2021 11/09/2021 1:58 PM RN IMCU Assessment Noted Time PHQ-9 Depression Total Score: 2 12/03/19 11:01 AM RN IMCU documented as of this encounter Care Teams Dynamiter Relationship Specialty [place] [address] [place] [address] PCP - General Family Medicine 12/03/20 Inocencio Dove MD [address] [place] [address] Assigned PCP 09/30/18 12/05/20 [place] [address] [place] [address] Assigned PCP 12/06/20 07/04/24 Sadaf Grider CNM [address] [address] Assigned OBGYN Provider 05/20/23 Amparo Henderson [employer] [facility] [address] [place] [address] Assigned PCP 07/05/24 documented as of this encounter
--- OUTSIDE RECORDS SUMMARY | 2025-01-28 21:05 | XMS_ITS | Encounter Summary ---
Author Organization [place] Address [facility] [place] [address] Care Team Providers Care Corporate Statistical Financial Analyst Name Role Phone Lenny Ferrara MD Primary Care Provider Lenny Ferrara MD Unavailable Sadaf Grider [facility] Unavailable Amparo Henderson [facility] Unavailable [phone] Encounter Details Date Type Department Care Team (Late st Contact Info) Description 07/27/2021 MyC Medical Advice [facility] [address] [place] [phone] [place]enny [place]ara [place] [id number] [place] [address] Social History Tobacco Use Types Packs/Day [...] on file Legal Sex Female 3:36 AM COLLECTIONS SPECIALIST Gender Identity Not on file Sexual Orientation Not on file 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 Not on file Not on file documented as of this encounter Plan of Treatment Not on file documented as of this encounter Visit Diagnoses Not on filedocumented in this encounter Additional Health Concerns Infection Onset Date Last Indicated Resolved Time Rule Out COVID-19 11/08/2021 11/08/2021 11/09/2021 1:58 PM COLLECTIONS SPECIALIST Assessment Noted Time PHQ-9 Depression Total Score: 2 12/03/19 21 11:01 AM COLLECTIONS SPECIALIST documented as of this encounter Care Teams Corporate Statistical Financial Analyst Relationship Specialty [place] [address] [place] [address] PCP - General Family Medicine 12/03/20 [place] [address] [place] [address] Assigned PCP 12/06/20 07/04/24 Sadaf Grider CNM [address] [address] Assigned OBGYN Provider 05/20/23 Amparo Henderson, CARPET OR RUG LAYER HELPER [address] [place], [place] [address] Assigned PCP 07/05/24 documented as of this encounter
--- OUTSIDE RECORDS SUMMARY | 2025-01-28 21:05 | XMS_ITS | Encounter Summary ---
Author Organization [place] Address [facility] [place] [address] Care Team Providers Care Behaviour Support Teacher Name Role Phone Lenny Ferrara MD Primary Care Provider Lenny Ferrraa MD Unavailable Sadaf Grider [facility] Unavailable Amparo Henderson [facility] Unavailable [phone] Encounter Details Date Type Department Care Team (Late st Contact Info) Description 07/27/2021 MyC Medical Advice [facility] [address] [place] [phone] [place] [id number] [place] [address] Social History Tobacco Use Types Packs/Day [...] on file Legal Sex Female 3:36 AM NETWORK SUPPORT ADMINISTRATOR Gender Identity Not on file Sexual Orientation Not on file 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 Not on file Not on file documented as of this encounter Plan of Treatment Not on file documented as of this encounter Visit Diagnoses Not on filedocumented in this encounter Additional Health Concerns Infection Onset Date Last Indicated Resolved Time Rule Out COVID-19 11/08/2021 11/08/2021 11/09/2021 1:58 PM NETWORK SUPPORT ADMINISTRATOR Assessment Noted Time PHQ-9 Depression Total Score: 2 12/03/19 21 11:01 AM NETWORK SUPPORT ADMINISTRATOR documented as of this encounter Care Teams Behaviour Support Teacher Relationship Specialty Start [place] [address] [place] [address] PCP - General Family Medicine 12/03/20 [place] [address] [place] [address] Assigned PCP 12/06/20 07/04/24 Sadaf Grider CNM [address] [address] Assigned OBGYN Provider 05/20/23 Amparo Henderson, PAYMENT ANALYST [address] [place], [place] [address] Assigned PCP 07/05/24 documented as of this encounter
--- OUTSIDE RECORDS SUMMARY | 2025-01-28 21:05 | XMS_ITS | Encounter Summary ---
Author Organization [place] Address [address] [facility] [place] [address] Care Team Providers Care Punch Molder Name Role Phone Lenny Ferrara MD Primary Care Provider [phone] Lenny Ferrara MD Unavailable Sadaf Grider CN Unavailable [phone] Amparo Henderson SPEECH AND HEARING CLINIC DIRECTOR Unavailable [phone] Encounter Details Date Type Department Care [...] re latives? Once a week 06/07/2024 Attends Rastafarian Services Not on file 06/07 Active Member of Clubs or Organizations Not on f ile 06/07/2024 Attends Club or Organization Meetings Not on evelin e 06/07/2024 Marital Status Not on file 06/07/2024 PHQ-2 Answer Date Recorded PHQ-2 Score 0 05/24/2024 [facility] [place] of Occupat ional Health - Occupational Stress [...] in an abandoned building, in an overnight halfway, or couch-surfing.) Yes 06/07/2024 Are you worried [...] on file Legal Sex Female 3:36 AM SPRINKLER FITTER APPRENTICE Gender Identity Not on file Sexual Orientation Not on file 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
--- OUTSIDE RECORDS SUMMARY | 2025-01-28 21:05 | XMS_ITS | Encounter Summary ---
Author Organization [place] Address [address] [facility] [place] [address] Care Team Providers Care Marketing Professor Name Role Phone Lenny Ferrara MD Primary Care Provider [phone] Lenny Ferrara MD Unavailable Sadaf Grider CN Unavailable [phone] Amparo Henderson [facility] Unavailable [phone] Encounter Details Date Type Department Care Team (Late st Contact Info) Description 07/21/2022 [facility] [place] [address] [address] Elif Anaya Social History Tobacco [...] on file Legal Sex Female 3:36 AM DIRECTOR OF MARKETING ANALYTICS Gender Identity Not on file Sexual Orientation Not on file 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 Not on file Not on file Not on file documented as of this encounter Plan of Treatment Not on file documented as of this encounter Visit Diagnoses Not on filedocumented in this encounter Additional Health Concerns Assessment Noted Time PHQ-9 Depression Total Score: 5 08/06/20 21 7:03 AM CDT documented as of this encounter Care Teams Marketing Professor Relationship Specialty [place] [address] [place] [address] PCP - General Family Medicine 12/03/20 [place] [address] [place] [address] Assigned PCP 12/06/20 07/04/24 Sadaf Grider CNM [address] [address] Assigned OBGYN Provider 05/20/23 Amparo Henderson, MAJOR SALES ASSOCIATE [address] [place] [address] Assigned PCP 07/05/24 documented as of this encounter
--- OUTSIDE RECORDS SUMMARY | 2025-01-28 21:05 | XMS_ITS | Encounter Summary ---
Author Organization [place] Address [address] [facility] [place] [address] Care Team Providers Care Statistics Manager Name Role Phone Klaus Pablo MD Primary Care Provider Unavailable Clinic, [facility] Escudero Primary Care Provider [phone] TryInocencio allred MD Unavailable [phone] Inocencio Dove MD Unavailable [phone] Ref-Primary, Physician Primary Care Provider Lenny Ferrara MD Primary Care Provider [phone] Lenny Ferrara MD Unavailable Sadaf Grider CN Unavailable [phone] Amparo Henderson ENGINEERING LECTURER Unavailable [phone] Encounter Details Date Type Department Care Team (Late st Contact Info) Description 02/19/2016 [facility] Medical Advice [address] [address] Israel Sarmiento, [facility] Social History Tobacco Use Types Packs/Day Years Used Date Smoking Tobacco: Some Days Cigarettes Smokeless Tobacco: Never Alcohol Use Standard Drinks/Week Comments Yes 0 (1 standard drink = 0.6 oz pur e alcohol) occassionally Comments No Sex and Gender Information Value Date Recorded Sex Assigned at Not on file Legal Sex Female 3:36 AM HYPERBARIC TECHNOLOGIST Gender Identity Not on file Sexual Orientation Not on file 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 file Not on file Not on file documented as of this encounter Plan of Treatment Not on file documented as of this encounter Visit Diagnoses Not on filedocumented in this encounter Additional Health Concerns Infection Onset Date Last Indicated Resolved Time Rule Out COVID-19 07/24/2020 07/24/2020 07/25/2020 8:16 PM CDT Rule Out COVID-19 12/03/2020 12/03/2020 12/04/2020 3:31 PM HYPERBARIC TECHNOLOGIST Rule Out COVID-19 11/08/2021 11/08/2021 11/09/2021 1:58 PM HYPERBARIC TECHNOLOGIST documented as of this encounter Care Teams Statistics Manager Relationship Specialty Start Date End Date Klaus Pablo MD PCP - General Family Practice 12/30/10 12/11/[address] [address] PCP - General 05/04/17 07/23/20 Inocencio Dove MD [address] [place] [address] PCP - Assigned PCP 12/16/18 01/15/19 No Ref-Primary, Physician PCP - General 07/24/20 12/02/20 [place] [address] [place] [address] PCP - General Family Medicine 12/03/20 Inocencio Dove MD [address] [place] [address] Assigned PCP 09/30/18 12/05/20 [place] [address] [place] [address] Assigned PCP 12/06/20 07/04/24 Sadaf Grider CNM [address] [facility] [address] [place], [place] [address] Assigned OBGYN Provider 05/20/23 Amparo Henderson, ENGINEERING LECTURER [address] [place], [place] [address] Assigned PCP 07/05/24 documented as of this encounter
--- OUTSIDE RECORDS SUMMARY | 2025-01-28 21:05 | XMS_ITS | Encounter Summary ---
Author Organization [place] Address [address] [facility] [place] [address] Care Team Providers Care Supervisor Concrete Pipe Plant Name Role Phone Lenny Ferrara MD Primary Care Provider [phone] Lenny Ferrara MD Unavailable Sadaf Grider CN Unavailable [phone] Amparo Henderson FEED HOUSE SUPERVISOR Unavailable [phone] Encounter Details Date Type Department Care [...] re latives? Once a week 06/07/2024 Attends Nondenominational Services Not on file 06/07 Active Member of Clubs or Organizations Not on f ile 06/07/2024 Attends Club or Organization Meetings Not on evelin e 06/07/2024 Marital Status Not on file 06/07/2024 PHQ-2 Answer Date Recorded PHQ-2 Score 0 05/24/2024 [facility] [place] of Occupat ional Health - Occupational Stress [...] in an abandoned building, in an overnight prison, or couch-surfing.) Yes 06/07/2024 Are you worried [...] on file Legal Sex Female 3:36 AM PROMOTIONAL DEMONSTRATOR Gender Identity Not on file Sexual Orientation Not on file 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 Not on file Not on file documented as of this encounter Plan of Treatment Not on file documented as of this encounter Visit Diagnoses Not on filedocumented in this encounter Additional Health Concerns Assessment Noted Time PHQ-9 Depression Total Score: 0 05/23/20 24 3:57 PM CDT documented as of this encounter Care Teams Supervisor Concrete Pipe Plant Relationship Specialty [place] [address] [place] [address] PCP - General Family Medicine 12/03/20 [place] [address] [place] [address] Assigned PCP 12/06/20 07/04/24 Sadaf Grider CNM [address] [id number] Assigned OBGYN Provider 05/20/23 Amparo Henderson, FEED HOUSE SUPERVISOR [address] [place], [place] [id number] Assigned PCP 07/05/24 documented as of this encounter
--- OUTSIDE RECORDS SUMMARY | 2025-01-28 21:05 | XMS_ITS | Clinical Summary ---
Author Organization [place] Address [address] [facility] [place] [address] Care Team Providers Care Layout Former Name Role Phone Lenny Ferrara MD Primary Care Provider [phone] Amparo Henderson [facility] Unavailable [phone] Allergies Active Allergy Reactions Criticality Noted [...] Overview (08/13/2021): 07/31/08 ASCUS + HPV 12/22/08 [place] atypia 02/21/12 NIL pap 03/30/16 LSIL Pap, [...] re latives? Once a week 06/14/2024 Attends Jain Services Not on file 06/14 Active Member of Clubs or Organizations Not on f ile 06/14/2024 Attends Club or Organization Meetings Not on evelin e 06/14/2024 Marital Status Not on file 06/14/2024 PHQ-2 Answer Date Recorded PHQ-2 Score 0 07/26/2024 [facility] - Occupational Stress Questionnaire Answer [...] in an abandoned building, in an overnight fpc, or couch-surfing.) Yes 06/14/2024 Are you worried [...] on file Legal Sex Female 3:36 AM CLOTH CARRIER Gender Identity Not on file Sexual Orientation Not on file 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 Not on file [...] 06/15/2024 10:19 AM CDT us Amparo Henderson EXCHANGE ENGINEER LAB - BLOOD ORDERABLES Final R esult [facility] [place] Core Lab [address] [facility] J [facility], Room [address] [place] [address], [facility] * Hepatitis C Screen [...] 06/15/2024 10:19 AM CDT us Amparo Henderson EXCHANGE ENGINEER LAB - BLOOD ORDERABLES Final R esult [facility] Core Lab [address] [facility], Room [address] [address] * (ABNORMAL) Lipid panel reflex to direct [...] or equal to 220 mg/dL us Amparo Henderson EXCHANGE ENGINEER LAB - BLOOD ORDERABLES Final R esult [facility] Core Lab [address] [facility], [address] [place] [address], [facility] OX LABORATORY [facility] [address] Lab (no room number, 1st floor of clinic) [place] [address], [facility] [phone] * Comprehensive metabolic panel (BMP + Alb, [...] 06/15/2024 10:19 AM CDT us Amparo Henderson EXCHANGE ENGINEER LAB - BLOOD ORDERABLES Final R esult [facility] [place] Core Lab [address] [facility] J Building, Room [address] [place] [address], [facility] OX LABORATORY [facility] Lab [address] Lab (no room number, 1st floor of clinic) [place] [address], [facility] [phone] * Pap Screen with HPV - recommended age 30 - 65 years (08/05/2021 5:32 PM CDT) Interpretation Negative for Intraepithelial Lesion or Malignancy (NILM) 08/10/2021 1:17 PM CDT [facility] Specimen Adequacy Satisfactory for evaluation, endocervical/abrams sformation zone component present 08/10/2021 1:17 PM CDT [facility] Clinical Information none 08/10/2021 1:17 PM CDT [facility] Reflex Testing Yes regardless of result 08/10/2021 1:17 PM CDT [facility] Previous Abnormal? No 08/10/2021 1:17 PM CDT [facility] Performing Labs The technical component of this testing was completed at [facility] 08/10/2021 1:17 PM CDT [facility] Brushing CERVIX UTERI STRUCTURE / Unknown Non-blood Collection / Unknown 08/05/2021 5:32 PM CDT 08/05/2021 6:26 PM CDT us [facility] Final Result [facility] [address] [place] [address], [facility] [phone] * HPV High Risk Types DNA Cervical (08/05/2021 5:32 PM CDT) Other HR HPV Negative Negative 08/12/2021 1:44 PM CDT [facility] HPV16 DNA Negative Negative 08/12/2021 1:44 PM CDT [facility] HPV18 DNA Negative Negative 08/12/2021 1:44 PM CDT [facility] FINAL DIAGNOSIS This patient's sample is negative for HPV DNA. This test was developed and its performance characteristics determined by the [facility], Molecular Diagnostics Laboratory. It has not been [...] followup is recommended. 08/12/2021 1:44 PM CDT [facility] Brushing CERVIX UTERI STRUCTURE / Unknown Non-blood Collection / Unknown 08/05/2021 5:32 PM CDT 08/11/2021 7:56 AM CDT us Lenny Ferrara MD LAB - BLOOD ORDERABLES Final Res ult [facility] Molecular Diagnostics Lab [address] [facility], [address] [place] [address], [facility] [phone] from Last 3 Months or Most Recently Relevant to Health Maintenance Insurance [facility] [employer] Care Teams Layout Former Relationship Specialty [place] [address] [place] [address] PCP - General Family Medicine 12/03/20 Amparo Henderson EXCHANGE ENGINEER [address] [place] [address] Assigned PCP 07/05/24
--- OUTSIDE RECORDS SUMMARY | 2025-01-28 21:05 | XMS_ITS | Encounter Summary ---
Author Organization [place] Address [facility] [place] [address] Care Team Providers Care Store Grocery Merchandiser Name Role Phone Lenny Ferrara MD Primary Care Provider [phone] Lenny Ferrara MD Unavailable Sadaf Grider 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 file Not on file Not on file documented as of this encounter Miscellaneous Notes * Telephone Encounter - Elif Anaya - 07/21/2022 11:13 AM CDT Notified patient Dr Ferrara does not do IUD's and that we need more information regarding the urgency for an appointment Elif Anaya/ Aerophysicist * Telephone Encounter - Kristy Emanuel - [...] be reached at: Home number on file [phone] (home) Best Time: anytime mid or Fridays Call taken on 07/21/2022 at 11:06 AM by Kristy Emanuel documented in this encounter Plan of Treatment Not on file documented as of this encounter Visit Diagnoses Not on filedocumented in this encounter Additional Health Concerns Assessment Noted Time PHQ-9 Depression Total Score: 5 08/06/20 21 7:03 AM CDT documented as of this encounter Care Teams Store Grocery Merchandiser Relationship Specialty [place] [address] [place] [address] PCP - General Family Medicine 12/03/20 [place] [address] [place] [address] Assigned PCP 12/06/20 07/04/24 Sadaf Grider CNM [address] [address] Assigned OBGYN Provider 05/20/23 Amparo Henderson, DIVISION TRAFFIC SUPERINTENDENT [address] [place] [address] Assigned PCP 07/05/24 documented as of this encounter
[2025-01-28 21:07] LABS: PCR FLU A Negative PCR FLU A (Negative); PCR FLU B Negative PCR FLU B (Negative); PCR RSV Negative PCR RSV (Negative); SARS PCR* Negative SARS-CoV-2 (Negative)
== END 2025-01-28 21:30 | disposition home or self-care (01) ==
PROVIDERS: Emergency Provider Family Medicine
DX: H66.91 Otitis media, unspecified, right ear (principal); J06.9 Acute upper respiratory infection, unspecified
CPT/HCPCS: 71045; 87631; 87651; 99284

== ENCOUNTER 2025-04-16 06:21 | Emergency (ER) | payer MEDICAID, SELFPAY ==
--- OUTSIDE RECORDS SUMMARY | 2017-01-25 06:28 | XMS_ITS | Continuity of Care Document ---
Author Organization [facility] Address [address] [address] [place] [address] Phone Care Team Providers Care Spinning Frame Fixer Name Role Phone Gabe Gomez MD Unavailable Unavailable Allergies, Adverse Reactions, Alerts Substance Reaction Status Criticality OXYCODONE HCL ItchingItching Active No Informati on acetaminophen ItchingItching Active No Informati on Medications Medication Instructions Dosage Effective Dates (start - stop) Status Comments Lamictal 200 mg tablet take 1 tablet by oral route every day 200 MG - Active escitalopram 20 mg tablet take 1 tablet by oral route every day 20 MG - Active trazodone 50 mg tablet take 1 tablet by ORAL route every day as needed - Active omeprazole 20 mg capsule,delayed release take 2 capsule by ORAL route 2 times every day before a meal 40 MG - Active Procedures Procedure Date Offic/outpt E&m New Mod-hi Routine Serum Collection Advance Directives Directive Yes / No Effective Date File Name No Information Encounters Encounter Description Practice Location Reason(s) For Visit Diagnoses Date Provider Providers Copied on Encounter [facility], [address] [address], [place], [place], [id number], [place] tel:[phone] [facility] No Information Patricia Bernal. [address] [address], [place], [place], [address] , [place]. tel:[phone] [facility], [address] [address], [place], [place], [address], [place] tel:[phone] [facility] Abdominal pain, epigastric 7 Patricia Bernal. [address] [facility], [facility] [address], [place], [place], [id number] , [place]. [phone] Offic/outpt E&m New Mod-hi [facility] [address] [address], [place], [place], [address], [place] [phone] [facility] GI Symptoms or Concerns (chief complaint) Abdominal pain, epigastricNausea with vomiting, unspecified 7 Patricia Bernal. [address] [facility], [facility] [address], [place], [place], [id number] , [place]. tel:[phone] Referring Provider: Referral Self, USE FOR SELF REFERRALS. Family History Family Member Type Diagnosis Age At Onset Daughter Problem (finding) Alive and well Mother Problem (finding) Alive and well Sister Problem (finding) GERD Father Problem (finding) alcoholism Payers Payer name Insurance type Covered green party ID Authoramia tifeliciano(s) [id number] Social History Type Description Quantity Date Captured Comments Alcohol Use Details Unknown Caffeine Use Details Unknown Tobacco Use Status Smoking Status No Information Sex Female Chief Complaint And Reason For Visit No Information Reason For Referral Reason For Referral No Information Plan Of Treatment Date Type Action Status Referral Ordered: Lipase Appointment date/timeframe: -today ordered Referral Ordered: Celiac S. Panel: IgA, Quantitave, Serum+tTG,IgA Appointment date/timeframe: -today ordered Referral Ordered: Hepatic Function Panel Appointment date/timeframe: -today ordered Referral Ordered: C-Reactive Protein Appointment date/timeframe: -today ordered Referral Ordered: Ultrasound Abdomen Appointment date/timeframe: -today ordered History Of Present Illness Encounter Date Complaint History Of Prese nt Illness GI Symptoms or Concerns This is a 31-year-old female who has been having epigastric pain, nausea and vomiting. This started two to three months ago. She describes a dull aching pain felt in the epigastric area. It felt like she was punched. Pain does not radiate. She does have associated nausea and vomiting when the pain is more severe. She has been feeling more bloated like she cannot wear her jeans and also feeling tired. Over time, the pain seems to be worsening. The vomiting has lessened. She was started on a PPI (Prilosec) in November and that might have helped a little bit with her symptoms. She has continued on that. She has not lost weight. In fact, has gained about 20 pounds over the last year and she attributes that to exercising less. 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 She takes ibuprofen occasionally.Over the last year, Functional Status Date Functional Assessmen t No Information Instructions Date Instruction Additional Infor satish 1. Set up EGD.2. Kelli ck thyroid labs today.3. Start Metamucil powder daily. Related to Abdominal pain, epigastric EGD Assessments Type Assessment Date No Information Patient Care Teams Name Effective Dates (start - stop) Status Members No Information
--- OUTSIDE RECORDS SUMMARY | 2017-01-25 06:28 | XMS_ITS | Continuity of Care Document ---
Author Organization [facility] Address [address] [address] [place] [address] Phone Care Team Providers Care Fishing Tool Supervisor Name Role Phone Gabe Gomez MD Unavailable [...] Diagnoses Date Provider Providers Copied on Encounter [facility], [address] [address], [place], [place], [address], [place] tel:[phone] [facility] No Information Patricia Bernal. [address] [address], [place], [place], [id number] , [place]. tel:[phone] [facility], [address] [address], [place], [place], [address], [place] tel:[phone] [facility] Abdominal pain, epigastric 7 Patricia Bernal. [address] [facility], [facility] [address], [place], [place], [id number] , [place]. [phone] Offic/outpt E&m New Mod-hi [facility] [address] [address], [place], [place], [address], [place] [phone] [facility] GI Symptoms or Concerns (chief complaint) Abdominal pain, epigastricNausea with vomiting, unspecified 7 Patricia Bernal. [address] [facility], [facility] [address], [place], [place], [address] , [place]. tel:[phone] Referring Provider: Referral Self, USE FOR SELF REFERRALS. Family History Family Member Type Diagnosis Age At Onset Daughter Problem (finding) Alive and well Mother Problem (finding) Alive and well Sister Problem (finding) GERD Father Problem (finding) alcoholism Payers Payer name Insurance type Covered republican ID Authoramia tifeliciano(s) [id number] Social History Type Description Quantity Date Captured [...]
--- OUTSIDE RECORDS SUMMARY | 2025-04-16 06:23 | XMS_ITS | Encounter Summary ---
Author Organization [place] Address [address] [place] [address] Care Team Providers Care Real Estate Transaction Coordinator Name Role Phone Lenny Ferrara MD Primary Care Provider [phone] Lenny Ferrara MD Unavailable Sadaf Grider [facility] Unavailable Amparo Henderson [facility] Unavailable [phone] Encounter Details Date Type Department Care Team (Late st Contact Info) Description 07/27/2021 [facility] [place] [facility] [address] [place] [address] [place] [id number] [place] [address] Social History Tobacco Use Types Packs/Day [...] on file Legal Sex Female 3:36 AM MANAGER MECHANICAL MAINTENANCE Gender Identity Not on file Sexual Orientation Not on file 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 Not on file Not on file documented as of this encounter Plan of Treatment Not on file documented as of this encounter Visit Diagnoses Not on filedocumented in this encounter Additional Health Concerns Infection Onset Date Last Indicated Resolved Time Rule Out COVID-19 11/08/2021 11/08/2021 11/09/2021 1:58 PM MANAGER MECHANICAL MAINTENANCE Assessment Noted Time PHQ-9 Depression Total Score: 2 12/03/19 21 11:01 AM MANAGER MECHANICAL MAINTENANCE documented as of this encounter Care Teams Real Estate Transaction Coordinator Relationship Specialty [place] [address] [place] [address] PCP - General Family Medicine 12/03/20 [place] [address] [place] [address] Assigned PCP 12/06/20 07/04/24 Sadaf Grider CNM [address] [address] Assigned OBGYN Provider 05/20/23 Amparo Henderson BOWLING BALL PATCHER [address] [place] [address] Assigned PCP 07/05/24 documented as of this encounter
--- OUTSIDE RECORDS SUMMARY | 2025-04-16 06:23 | XMS_ITS | Clinical Summary ---
Author Organization [employer] [facility] Address [address] [place] [address] Care Team Providers Care Motel Clerk Name Role Phone Kamini Ruff Ray SWAGE TOOLSETTER Unavailable [phone] None Primary Care Provider Unavailabl e Allergies Active Allergy Reactions Criticality Noted Date Comments Aspirin Other - Describe In Comment Field 11/04/2010 Low platelets Oxycodone Itching 06/14/2024 Oxycodone-Acetaminophen Rash,Itching 11/24/2008 Medications traZODone (DESYREL) 50 mg tablet Take 1 tablet by mouth at bedtime. 0 2 Active lamoTRIgine (LAMICTAL) 25 mg tablet 6 Active VITAMIN D2 50,000 unit capsuleIndicatio ns:Avitaminosis D Take 1 capsule by mouth every Monday and . 8 capsule 2 7 Active escitalopram oxalate (LEXAPRO) 20 mg tabletIndication s:Alcoholism (HC) Take 1 tablet by mouth every morning. 90 tablet 1 7 Active lamoTRIgine (LAMICTAL) 150 mg tabletIndication s:Alcoholism (HC) Take 1 tablet by mouth once daily. 90 tablet 1 7 Active traZODone (DESYREL) 50 mg tabletIndication s:Alcoholism (HC) Take 1 tablet by mouth at bedtime if needed for Sleep. 90 tablet 1 7 Active HYDROmorphone (DILAUDID) 2 mg tabletIndication s:Cat bite, initial encounter Take 1 tablet by mouth every 4 hours if needed for Pain (for severe pain and discomfort.) 7 tablet 8 Active HYDROcodone-acet aminophen, 5-325 mg, (NORCO) per tablet Take 1-2 tablets by mouth 8 Active hydrOXYzine pamoate 50 mg capsule Take 50 mg by mouth. 4 Active semaglutide 2 mg/1.5 mL subcutaneous pen Inject subcutaneous once weekly. Active Hospital, Clinic, or Other Facility Administered [...] hearing loss, and eye abnormalities, mostly cataracts (Gracia et al., 1985). 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 [...] NEG - repeat cotesting in 1 year Encounters Date Type Department Care Team Description 03/17/2025 2:05 PM CDT Ancillary Procedure Formerly [facility] [address] [facility] [address] [place] [address] 03/17/2025 1:30 PM CDT Office Visit [facility] [address] [facility] [address] [place] [address] Franklyn Villeda PA Finger Injury (Left hand ring finger) 03/17/2025 Travel from Last 3 Months Immunizations Immunization Administration Dates Next Due Hepatitis B (Adult) 06/14/2024,09/09/2010,2009 Imovax 12/15/2017,12/08/2017,12/05/2017 Influenza, IIV3 (Age >=3 years) 09/22/2014,08/19 Rabavert 12/02/2017 Tdap 12/02/2017,07/20/2010 Family History Medical History Relation Name Comments Good Health Father Blood Disease Mother Fechtner syndr ome Relation Name Status Comments Father Mother Social History Tobacco Use Types Packs/Day Years Used Date Smoking Tobacco: Some Days Cigarettes Last attempted to quit: 01/22/2016 Smokeless Tobacco: Never Tobacco Cessation:Ready to Q uit: Not Asked; Counseling Given: Not Answered Alcohol Use Standard Drinks/Week Comments Yes 0 (1 standard drink = 0.6 oz pur e alcohol) social Comments No Sex and Gender Information Value Date Recorded Sex Assigned at Not on file Legal Sex Female 5:27 AM ROLL TUBE SETTER Gender Identity Not on file Sexual Orientation [...] Sign Reading Time Taken Comments Blood Pressure 131/81 03/17/2025 1:33 PM CDT Pulse 82 03/17/2025 1:33 PM CDT Temperature 36.6 C (97.9 F) 03/17/2025 1:33 PM CDT Respiratory Rate 18 03/17/2025 1:33 PM CDT Oxygen Saturation 97% 03/17/2025 1:33 PM CDT Inhaled Oxygen Concentration - - Weight 96.8 kg (213 lb 6.4 oz) 12/01/2017 11:01 PM ROLL TUBE SETTER Height 175.3 cm (5' 9) 12/01/2017 11:01 PM ROLL TUBE SETTER Body Mass Index 31.51 12/01/2017 11:01 PM ROLL TUBE SETTER Plan of Treatment Health Maintenance Due Date Last Done Comments Hepatitis C screening for ag e 18-79 2001 Pneumococcal series for age 6-49 (1 of 2 - PCV) 2002 BMI (ht and wt on same day) for age 18+ 03/23/2017 03/23/2016 Depression screening for age 12+ 05/08/2018 05/08/2017, 02/13/2017, 02/13/2017, Additional history exists COVID-19 vaccine series ( season) 2024 12/17/2021, 11/26/2021 Pap test for age 21-65 08/05/2024 (Verified in Care Everywhere or Patient Record), 02/13/2017, 02/13/2017, Additional history exists Influenza Vaccine (Season Ended) 2025 09/22/20 14, 08/19/2010 Tetanus booster 12/02/2027 12/02/2017, 12/0 11/2010, 07/20/2010 HIV for age 15-65 Completed 2014 Tdap Completed 12/02/2017, 07/20/2010 Hepatitis B series for 19+ Completed 06/14, 09/09/2010, 07/26/2010 Procedures Procedure Name Priority Date/Time Associated Diagnosis Comments AMB PROC DOC NAIL REMOVAL Routine 03/17/2025 2:31 PM CDT Pain of finger of left hand Subungual hematoma of digit of hand, initial encounter XR FINGER 3 VIEWS LEFT STAT 03/17/2025 2:10 PM CDT Pain of finger of left hand AUTOMOTIVE REFINISH TECHNICIAN THIN PREP PAP DIAGNOSTIC IMAGED Routine 02/13/2017 2:18 PM CDT Low grade squamous intraepithelial lesion (LGSIL) on cervical Pap smear ANTI HIV 1/2 Routine 2014 1:45 PM CDT Screen for STD (sexually transmitted disease) from Last 3 Months or Most Recently Relevant to Health Maintenance Results * Nail Procedure (03/17/2025 2:31 PM CDT) Narrative Franklyn Villeda PA - 03/17/2025 2:31 PM CDT Franklyn Villeda PA 03/17/2025 2:46 PM Nail Procedure Date/Time: 03/17/2025 2:31 PM Performed by: Franklyn Villeda PA Authorized by: Franklyn Villeda PA Consent: Consent obtained: Verbal Risks, benefits, and alternatives were discussed: yes Risks discussed: Bleeding, infection, pain and permanent nail deformity Alternatives discussed: No treatment, observation and alternative treatment [place] protocol: Procedure explained and questions answered to patient or proxy's satisfaction: yes Imaging studies available: yes Immediately prior to procedure, a time out was called: yes Patient identity confirmed: Verbally with patient Pre-procedure details: Skin preparation: Chlorhexidine Preparation: Patient was prepped and draped in the usual sterile fashion Procedure details: Location: Hand Hand location: L ring finger Anesthesia: Anesthesia method: None Trephination: Subungual hematoma drained: yes Trephination instrument: Cautery Post-procedure details: Dressing: Splint Procedure completion: Tolerated well, no immediate complications Franklyn SMITH PROCEDURE ORD Final Re sult * XR FINGER 3 VIEWS LEFT (03/17/2025 2:10 PM CDT) Anatomical Region Laterality Modality Finger Digital Radiogra phy 03/17/2025 2:27 PM CDT Impressions 03/17/2025 2:27 PM CDT No acute osseous abnormality. Dictated by Leroy Tate MD @ 03/17/2025 2:27:51 PM (Electronically Signed) Narrative 03/17/2025 2:27 PM CDT For Patients: As a result of the Cures Act, medical imaging exams and procedure reports are released immediately into your electronic medical record. You may view this report before your referring provider. If you have questions, please contact your health care provider. INDICATION: Pain of finger of left hand. TECHNIQUE: Left hand 4th digit three views. COMPARISON: None. FINDINGS: No acute fracture or dislocation. No additional osseous abnormality. Soft tissues as imaged are unremarkable. Procedure Note Leroy Tate DO - 03/17/2025 For Patients: As a result of the Cures Act, medical imagingexams and procedure reports are released immediately into your electronicmedical record. You may view this report before your referring provider.If you have questions, please contact your health care provider. INDICATION: Pain of finger of left hand. TECHNIQUE: Left hand 4th digit three views. COMPARISON: None. FINDINGS: No acute fracture or dislocation. No additional osseous abnormality. Softtissues as imaged are unremarkable. IMPRESSION: No acute osseous abnormality. Dictated by Leroy Tate MD @ 03/17/2025 2:27:51 PM (Electronically Signed) Franklyn SMITH [facility] Final Re sult * AUTOMOTIVE REFINISH TECHNICIAN THIN PREP PAP DIAGNOSTIC IMAGED (02/13/2017 2:18 PM CDT) Case Report Gynecologic Cytology Report Case: [id number] Authorizing Provider: Thu Esparza NP Collected: 02/13/2017 1418 Ordering Location: [facility] Received: 02/13/2017 1419 First Screen: Gloria Castaneda Rescreen: Hitesh Beverly Specimen: AUTOMOTIVE REFINISH TECHNICIAN ThinPrep Vial Diagnostic, Cervical 02/28/2017 1:43 PM CDT [facility] INTERPRETATION/ RESULT NEGATIVE FOR INTRAEPITHELIAL LESION OR MALIGNANCY (NIL) (none) 02/28/2017 1:43 PM CDT [facility] at 1343 CDT SPECIMEN ADEQUACY Satisfactory for evaluation Endocervical component present 02/28/2017 1:43 PM CDT [facility] HPV REQUEST HPV and PAP 02/28/2017 1:43 PM CDT [facility] Date of LMP 02/06/2017 02/28/2017 1:43 PM CDT [facility] Last Pap Date 03/30/16 02/28/2017 1:43 PM CDT [facility] Last Pap Result LSIL 7 1:43 PM CDT [facility] Abnormal Pap or Quail Bx in last 5 years Yes 02/28/2017 1:43 PM CDT [facility] Menstrual Status Irregular Periods 02/28/2017 1:43 PM CDT [facility] Quail Bx Done Today No 02/28/2017 1:43 PM CDT [facility] Additional Information None Given 02/28/2017 1:43 PM CDT [facility] Automated Review Successful 02/28/2017 1:43 PM CDT [facility] Comment:Specimen processed s uccessfully by automated land reclamation specialist device, ThinPrep Imaging System, [employer] ANCILLARY TESTING AUTOMOTIVE REFINISH TECHNICIAN HPV Ordered, Please see separate report 02/28/2017 1:43 PM CDT [facility] Note The pap test is a screening technique, not a diagnostic procedure. It is used primarily to screen for squamous cancers and precursor lesions. Published studies have shown that it is subject to both false negative and false positive results. The pap test should not be used as the sole means to diagnose or exclude pre-malignant and malignant lesions. Interpreted at [facility] ([facility], [facility], [facility], [facility], [facility], [facility], [facility]) 02/28/2017 1:43 PM CDT [facility] Other (Cervical) 02/13/2017 2:18 PM CDT 02/13/2017 2:19 PM CDT us Thu Esparza PATHOLOGY/CYTOLOGY Final Resu lt [facility] [address] [place] [address], [place] * ANTI HIV 1/2 (2014 1:45 PM CDT) HIV-1/HIV-2 ANTIBODY Non-Reacti ve Non-Reacti ve 03/05/2014 1:44 AM CDT [facility] Blood specimen (specimen) BLOOD SPECIMEN / Unknown Venipuncture / Unknown 2014 1:45 PM CDT 2014 1:45 PM CDT Narrative [facility] - 03/05/2014 1:44 AM CDT HIV-1 p24 and HIV-1/HIV-2 Ab not detected us Eladia Dong MD SEND OUTS Final Result [facility] [address] [place] [address], [place] from Last 3 Months or Most Recently Relevant to Health Maintenance Insurance [phone] [place] [address] [place] [phone] [place] [address] [facility] [phone] [place] [address] [facility] Care Teams Motel Clerk Relationship Specialty Start Date End Date None . PCP - General 03/17/25 Kamini Ruff NP [address] [place] [id number] Consulting Physician Nurse Practitioner 03/23/16
--- OUTSIDE RECORDS SUMMARY | 2025-04-16 06:23 | XMS_ITS | Encounter Summary ---
Author Organization [employer] Address [address] [place] [address] Care Team Providers Care Appliance Worker Name Role Phone PettyInocencio MD Unavailable Lenny Ferrara MD Primary Care Provider Lenny Ferrara MD Unavailable Sadaf Grider [facility] Unavailable Amparo Henderson [facility] Unavailable [phone] Reason for Visit * Reason Onset Date Comments MyChart Communication 12/03/2020 Encounter Details Date Type Department Care Team (Latest Contact Info) Description 12/03/2020 MyC Medical Advice [facility] [id number] [place] [id number] [place] [address] [place] [address] MyChart Communication Social History Tobacco Use [...] on file Legal Sex Female 3:36 AM PLASTERER JOURNEYMAN Gender Identity Not on file Sexual Orientation Not on file 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 Unable to assess 12/03/2020 1:59 PM PLASTERER JOURNEYMAN documented as of this encounter Plan of Treatment Not on file documented as of this encounter Visit Diagnoses Not on filedocumented in this encounter Additional Health Concerns Infection Onset Date Last Indicated Resolved Time Rule Out COVID-19 12/03/2020 12/03/2020 12/04/2020 3:31 PM PLASTERER JOURNEYMAN Rule Out COVID-19 11/08/2021 11/08/2021 11/09/2021 1:58 PM PLASTERER JOURNEYMAN Assessment Noted Time PHQ-9 Depression Total Score: 2 12/03/19 11:01 AM PLASTERER JOURNEYMAN documented as of this encounter Care Teams Appliance Worker Relationship Specialty [place] [address] [place] [address] PCP - General Family Medicine 12/03/20 Inocencio Dove MD [address] [place] [address] Assigned PCP 09/30/18 12/05/20 [place] [address] [place] [address] Assigned PCP 12/06/20 07/04/24 Sadaf Grider CNM [address] [address] Assigned OBGYN Provider 05/20/23 Amparo Henderson, ADJUTANT GENERAL [address] [place] [address] Assigned PCP 07/05/24 documented as of this encounter
--- OUTSIDE RECORDS SUMMARY | 2025-04-16 06:23 | XMS_ITS | Encounter Summary ---
Author Organization [employer] Address [address] [facility] [place] [address] Care Team Providers Care Print Production Coordinator Name Role Phone Klaus Pablo MD Primary Care Provider Unavailable Clinic, [facility] Primary Care Provider [phone] Inocencio Dove MD Unavailable [phone] Inocencio Doev MD Unavailable [phone] No Ref-Primary, Physician Primary Care Provider Lenny Ferrara MD Primary Care Provider Lenny Ferrara MD Unavailable Sadaf Grider CNM Unavailable [phone] Amparo Henderson SPECIAL EDUCATION AIDE Unavailable [phone] Encounter Details Date Type Department Care Team (Late st Contact Info) Description 02/19/2016 MyC Medical Advice M [address] [phone] Israel Sarmiento, [facility] Social History Tobacco Use Types Packs/Day Years Used Date Smoking Tobacco: Some Days Cigarettes Smokeless Tobacco: Never Alcohol Use Standard Drinks/Week Comments Yes 0 (1 standard drink = 0.6 oz pur e alcohol) occassionally Comments No Sex and Gender Information Value Date Recorded Sex Assigned at Not on file Legal Sex Female 3:36 AM OR RN Gender Identity Not on file Sexual Orientation Not on file 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 Not on file Not on file Not on file documented as of this encounter Plan of Treatment Not on file documented as of this encounter Visit Diagnoses Not on filedocumented in this encounter Additional Health Concerns Infection Onset Date Last Indicated Resolved Time Rule Out COVID-19 07/24/2020 07/24/2020 07/25/2020 8:16 PM CDT Rule Out COVID-19 12/03/2020 12/03/2020 12/04/2020 3:31 PM OR RN Rule Out COVID-19 11/08/2021 11/08/2021 11/09/2021 1:58 PM OR RN documented as of this encounter Care Teams Print Production Coordinator Relationship Specialty Start Date End Date Klaus Pablo MD PCP - General Family Practice 12/30/10 12/11/16 [facility], [address] [address] PCP - General 05/04/17 07/23/20 Inocencio Dove MD [address] [place] [address] PCP - Assigned PCP 12/16/18 01/15/19 No Ref-Primary, Physician PCP - General 07/24/20 12/02/20 [place] [address] [place] [address] PCP - General Family Medicine 12/03/20 Inocencio Dove MD [address] [place] [address] Assigned PCP 09/30/18 12/05/20 [place] [address] [place] [address] Assigned PCP 12/06/20 07/04/24 Sadaf Grider CNM [address] [place] [address] Assigned OBGYN Provider 05/20/23 Amparo Henderson, SPECIAL EDUCATION AIDE [address] [place] [address] Assigned PCP 07/05/24 documented as of this encounter
--- OUTSIDE RECORDS SUMMARY | 2025-04-16 06:23 | XMS_ITS | Encounter Summary ---
Author Organization [place] Address [address] [place] [address] Care Team Providers Care Lunchroom Food Service Supervisor Name Role Phone Lenny Ferrara MD Primary Care Provider [phone] Lenny Ferrara MD Unavailable Sadaf Grider CN Unavailable [phone] Amparo Henderson INSURANCE BILLER Unavailable [phone] Encounter Details Date Type Department Care Team (Late st Contact Info) Description 06/07/2024 MyC Medical Advice Initial Department Nishant Grimes Social History Tobacco Use Types Packs/Day Years [...] re latives? Once a week 06/07/2024 Attends Anabaptism Services Not on file 06/07 Active Member of Clubs or Organizations Not on f ile 06/07/2024 Attends Club or Organization Meetings Not on evelin e 06/07/2024 Marital Status Not on file 06/07/2024 PHQ-2 Answer Date Recorded PHQ-2 Score 0 05/24/2024 [facility] [place] of Occupat ional Health - Occupational Stress [...] Answer Date Recorded Do you have housing? 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
--- OUTSIDE RECORDS SUMMARY | 2025-04-16 06:23 | XMS_ITS | Encounter Summary ---
Author Organization [place] Address [address] [facility] [place] [address] Care Team Providers Care Ehs Specialist Name Role Phone Lenny Ferrara MD Primary Care Provider [phone] Lenny Ferrara MD Unavailable Sadaf Grider CN Unavailable [phone] Amparo Henderson WORD PROCESSOR TECHNICIAN Unavailable [phone] Encounter Details Date Type Department Care [...] re latives? Once a week 06/07/2024 Attends Orthodoxy Services Not on file 06/07 Active Member of Clubs or Organizations Not on f ile 06/07/2024 Attends Club or Organization Meetings Not on evelin e 06/07/2024 Marital Status Not on file 06/07/2024 PHQ-2 Answer Date Recorded PHQ-2 Score 0 05/24/2024 [facility] [place] of Occupat ional Health - Occupational Stress [...] in an abandoned building, in an overnight residential, or couch-surfing.) Yes 06/07/2024 Are you worried [...] file Legal Sex Female 3:36 AM PRODUCTION LABORER Gender Identity Not on file Sexual Orientation Not on file 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 Not on file Not on file documented as of this encounter Plan of Treatment Not on file documented as of this encounter Visit Diagnoses Not on filedocumented in this encounter Additional Health Concerns Assessment Noted Time PHQ-9 Depression Total Score: 0 05/23/20 24 3:57 PM CDT documented as of this encounter Care Teams Ehs Specialist Relationship Specialty [place] [address] [place] [address] PCP - General Family Medicine 12/03/20 [place] [address] [place] [address] Assigned PCP 12/06/20 07/04/24 Sadaf Grider CNM [address] [address] Assigned OBGYN Provider 05/20/23 Amparo Henderson, WORD PROCESSOR TECHNICIAN [address] [place], [place] [address] Assigned PCP 07/05/24 documented as of this encounter
--- OUTSIDE RECORDS SUMMARY | 2025-04-16 06:23 | XMS_ITS | Clinical Summary ---
Author Organization [facility] Address [address] [place] [address] Care Team Providers Care Lead Web Application Developer Name Role Phone Lenny Ferrara MD Primary Care Provider [phone] Amparo Henderson [facility] [phone] Allergies Active Allergy Reactions Criticality Noted Date Comments Aspirin Other (See Comments) 11/04/2010 Low platelets Oxycodone Itching 06/14/2024 Medications lamoTRIgine (LAMICTAL) 150 MG tablet Take 150 mg by mouth every evening Active escitalopram (LEXAPRO) 20 MG tablet Take 20 mg by mouth every evening Active hydrOXYzine (ATARAX) 50 MG tablet TK 1 TO AND 1/2 TS PO HS PRF INSOMNIA [...] Overview (08/13/2021): 07/31/08 ASCUS + HPV 12/22/08 [place] atypia 02/21/12 NIL pap 03/30/16 LSIL Pap, Neg HR HPV (care everywhere) 02/13/17 NIL Pap, Neg HR HPV (care everywhere) 08/05/21 NIL Pap, Neg HR HPV Plan 3 year cotest. Immunizations Immunization Administration Dates Next Due COVID-19 MONOVALENT 12+ [...] re latives? 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 Not on file Not on file [...] Health Maintenance Due Date Last Done Comments PNEUMOCOCCAL VACCINE: PEDIATRICS (0 to 5 YEARS) AND AT-RISK PATIENTS (6 to 49 YEARS) (1 of 2 - PCV) 2002 ANNUAL REVIEW OF HM ORDERS 12/29/2023 12/29/2022, COVID-19 VACCINE ( - season) 2024 12/17/2021, 11/26/2021 HPV FOLLOW-UP 08/05/2024 08/05/2021 PAP FOLLOW-UP 08/05/2024 08/05/2021, 02/11, 07/31/2009 PHQ-9 01/23/2025 07/26/2024, 05/13, 12/29/2022, Additional history exists NICOTINE/TOBACCO CESSATION COUNSELING Q 1 YR 06/14/2025 06/14/2024, 08/05/2021, 04/18/2013 YEARLY PREVENTIVE VISIT 06/14/2025 06/14/2024, 08/05 INFLUENZA VACCINE (Season Ended) 2025 08/05/2021 (Declined), 09/22/2014, 08/19/2010 MAMMO SCREENING 06/15/2026 06/15/2024 DIABETES SCREENING 06/15/2027 06/15/2024, 0 08/05/2021, 08/05/2021, Additional history exists DTAP/TDAP/TD VACCINE (3 - Td or Tdap) 12/02/2027 12/02/2017, 07/20/2010 ADVANCE CARE PLANNING 06/14/2029 06/14/2024 LIPID 06/15/2029 06/15/2024, 08/05/2021 ZOSTER VACCINE (1 of 2) 2033 DEPRESSION ACTION PLAN Completed 5, 01/19/2015, 04/21/2013, Additional history exists PAP Discontinued 08/05/2021, 02/11, 07/31/2009 HEPATITIS B VACCINE Completed 06/14/2024, 09/09/2010, 09/09/2010, Additional history exists HEPATITIS C SCREENING Completed 06/15/2024 HIV SCREENING Discontinued 06/15/2024, 2014 HPV VACCINE Aged Out No longer eligi ble based on patient's age to complete this topic MENINGITIS VACCINE Aged Out No longer eligible based on [...] Combo Nonreactive Nonreactive 06/16/2024 4:43 PM CDT U LABORATORY Comment:Negative HIV-1 p24 a ntigen and [...] 06/15/2024 10:19 AM CDT us Amparo Henderson AIR TRANSPORTATION PROVIDER LAB - BLOOD ORDERABLES Final R esult LABORATORY [facility] [address] [facility] [address] [facility], [address] [place] [address], [facility] * Hepatitis C Screen Reflex to HCV [...] 06/15/2024 10:19 AM CDT us Amparo Henderson AIR TRANSPORTATION PROVIDER LAB - BLOOD ORDERABLES Final R esult UU LABORATORY [facility] [address] [facility], [address] [phone] * (ABNORMAL) Lipid panel reflex to [...] equal to 220 mg/dL us Amparo Henderson AIR TRANSPORTATION PROVIDER LAB - BLOOD ORDERABLES Final R esult [facility]U LABORATORY [facility] Core Lab [address] [facility], [address] [place] [phone], [facility] OX LABORATORY [facility] [address] Lab (no room number, 1st floor of clinic) [place] [address], [facility] [phone] * Comprehensive metabolic panel (BMP + Alb, [...] 06/15/2024 10:19 AM CDT us Amparo Henderson AIR TRANSPORTATION PROVIDER LAB - BLOOD ORDERABLES Final R esult [facility]U LABORATORY [facility] [address] [facility] [address] Building, [address] [place] [address], [facility] OX LABORATORY [facility] [address] Lab (no room number, 1st floor of clinic) [place] [address], [facility] [phone] * Pap Screen with HPV - recommended age 30 - 65 years (08/05/2021 5:32 PM CDT) Interpretation Negative for Intraepithelial Lesion or Malignancy (NILM) 08/10/2021 1:17 PM CDT [facility] LABORATORY at 1317 CDT Specimen Adequacy Satisfactory for evaluation, endocervical/abrams sformation zone component present 08/10/2021 1:17 PM CDT [facility] Clinical Information none 08/10/2021 1:17 PM CDT [facility]ORAT[facility] Reflex Testing Yes regardless of result 08/10/2021 1:17 PM CDT [facility] Previous Abnormal? No 08/10/2021 1:17 PM CDT [facility] Performing Labs The technical component of this testing was completed at [facility] 08/10/2021 1:17 PM CDT [facility]OR[facility] Brushing CERVIX UTERI STRUCTURE / Unknown Non-blood Collection / Unknown 08/05/2021 5:32 PM CDT 08/05/2021 6:26 PM CDT us Lenny Ferrara MD LAB - [facility] Final Result [address] [address], [facility] [phone] * HPV High Risk Types DNA Cervical (08/05/2021 5:32 PM CDT) Other HR HPV Negative Negative 08/12/2021 1:44 PM CDT [facility] HPV16 DNA Negative Negative 08/12/2021 1:44 PM CDT [facility] HPV18 DNA Negative Negative 08/12/2021 1:44 PM CDT [facility] FINAL DIAGNOSIS This patient's sample is negative for HPV DNA. This test was developed and its performance characteristics determined by the [facility], Molecular Diagnostics Laboratory. It has [...] followup is recommended. 08/12/2021 1:44 PM CDT [facility] Brushing CERVIX UTERI STRUCTURE / Unknown Non-blood Collection / Unknown 08/05/2021 5:32 PM CDT 08/11/2021 7:56 AM CDT us Lenny Ferrara MD LAB - BLOOD ORDERABLES Final Res ult [facility] MOLE[facility]ULAR DIAGNOSTICS [facility] Molecular Diagnostics Lab [address] [facility], [address] [place] [address], [facility] [phone] from Last 3 Months or Most Recently Relevant to Health Maintenance Insurance [employer] Care Teams Lead Web Application Developer Relationship Specialty [place] [address] [place] [address] PCP - General Family Medicine 12/03/20 Amparo Henderson AIR TRANSPORTATION PROVIDER [address] [place] [address] Assigned PCP 07/05/24
--- OUTSIDE RECORDS SUMMARY | 2025-04-16 06:23 | XMS_ITS | Encounter Summary ---
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 Gender Identity Not on file Sexual Orientation Not on file 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 Not on file Not on file Not on file documented as of this encounter Plan of Treatment Not on file documented as of this encounter Visit Diagnoses Not on filedocumented in this encounter Additional Health Concerns Assessment Noted Time PHQ-9 Depression Total Score: 5 08/06/20 21 7:03 AM CDT documented as of this encounter Care Teams Candy Bar Attendant Relationship Specialty [place] [address] [place] [address] PCP - General Family Medicine 12/03/20 [place] [address] [place] [address] Assigned PCP 12/06/20 07/04/24 Sadaf Grider CNM [address] [id number] Assigned OBGYN Provider 05/20/23 Amparo Henderson, GETTERING FILAMENT 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 [address] [place] [address] Assigned PCP 07/05/24 documented as of this encounter
--- OUTSIDE RECORDS SUMMARY | 2025-04-16 06:23 | XMS_ITS | Encounter Summary ---
Author Organization [employer] Address [address] [place] [address] Care Team Providers Care Trackmobile Operator Name Role Phone Lenny Ferrara MD Primary Care Provider Lenny Ferrara MD Unavailable Sadaf Grider [facility] Unavailable Amparo Henderson [facility] Unavailable [phone] Encounter Details Date Type Department Care Team (Late st Contact Info) Description 07/27/2021 [facility] Medical Advice [facility] [id number] [place] [address] [place] [id number] [place] [address] Social History Tobacco Use Types Packs/Day [...] on file 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 Gender Identity Not on file Sexual Orientation Not on file 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 Not on file Not on file Not on file documented as of this encounter Plan of Treatment Not on file documented as of this encounter Visit Diagnoses Not on filedocumented in this encounter Additional Health Concerns Infection Onset Date Last Indicated Resolved Time Rule Out COVID-19 11/08/2021 11/08/2021 11/09/2021 1:58 PM TRACTOR MECHANIC APPRENTICE Assessment Noted Time PHQ-9 Depression Total Score: 2 12/03/19 21 11:01 AM TRACTOR MECHANIC APPRENTICE documented as of this encounter Care Teams Trackmobile Operator Relationship Specialty Start [place] [address] [place] [address] PCP - General Family Medicine 12/03/20 [place] [address] [place] [address] Assigned PCP 12/06/20 07/04/24 Sadaf Grider CNM [address] [address] Assigned OBGYN Provider 05/20/23 Amparo Henderson RADIOISOTOPE TECHNICIAN [address] [place] [address] Assigned PCP 07/05/24 documented as of this encounter
[2025-04-16 06:32] VITALS: BP 121/80; PULSE 77; RESP 16; TEMP 36.6; O2SAT 96; BMI 30.7
--- NOTE | 2025-04-16 06:44 | ED.GENADULT ---
HPI - General Adult General Date Seen: 04/16/25 Chief complaint: Back Injury/Pain Stated complaint: sever back pain Time Seen by Provider: 04/16/25 06:34 History of Present Illness HPI narrative: Patient is a 40-year-old woman who presents with pain in her right SI joint area which she says radiates down the back of her leg. She notes that she has prior history of a disc herniation a couple of years ago which she says surgery was recommended for but due to her insurance she did not have. Symptoms resolved and she has not had any back problems since then. Last night she says she was kind of constipated with straining and aggravated her back. It has been hurting since then. She has tried ibuprofen without improvement. No fevers, weakness numbness or other bowel or bladder changes. Related Data Home Medications ?Medication ?Instructions ?Recorded ?Confirmed albuterol sulfate 90 mcg/actuation 2 puff inhalation QID PRN 03/25/25 03/25/25 aerosol inhaler alprazolam 0.25 mg tablet 0.25 mg PO QPM PRN 03/25/25 03/25/25 escitalopram oxalate 20 mg tablet 20 mg PO QPM 03/25/25 03/25/25 hydroxyzine pamoate 50 mg capsule 50 mg PO QPM 03/25/25 03/25/25 lamotrigine 150 mg tablet 150 mg PO QPM 03/25/25 03/25/25 Allergies Allergy/AdvReac Type Severity Reaction Status Date / Time No Known Drug Allergies Allergy Verified 03/25/25 08:45 Review of Systems Status of ROS: Reports: 6 or more systems reviewed and unremarkable except as noted in History and below [facility] Social History Smoking Status: Current every day smoker What tobacco products do you use: cigarettes Smoking packs per day: 0.5 Smoking cigarettes per day: 10.0 Do you use any of these nicotine containing products: None Second hand tobacco smoke exposure: No How often do you have a drink containing alcohol: monthly or less How many standard drinks containing alcohol do you have on a typical day: 1 or 2 How often do you have six or more drinks on one occasion: Never AUDIT-C Alcohol total score: 1 Non-prescribed substance use: marijuana (any form) service: No Exam Narrative: Exam Narrative: Vital signs reviewed In general, alert, nontoxic mid age woman. Ambulatory without difficulty. Head: Normocephalic, atraumatic. Eyes: Sclera clear. Pupils equal and reactive. ENT: Mucous membranes moist. Neck: Supple without adenopathy. Heart: Regular rate and rhythm without murmur. Lungs: Clear. No increased work of breathing, crackles or wheezes. Back: She has tenderness over the right SI joint. No other lumbar tenderness or midline tenderness. Extremities: Well perfused, pulses intact. No significant edema. Neurologic: Alert, conversant. Speech fluent, face symmetric. Moves all extremities equally. Strength is 5 of 5 in bilateral lower extremities. Sensation intact to light touch. Skin: Warm, dry well perfused. Affect: Normal. Const: Vital Signs, click to edit/add: Vital Signs - 24 hr 04/16/25 06:32 Temperature 97.8 F Pulse Rate [Left P ulse Oximeter] 77 Respiratory Rate 16 Blood Pressure [Ri ght Upper Arm] 121/80 Pulse Oximetry 96 Oxygen Delivery Me thod Room Air Course Course ED Course: Discussed that symptoms at this time seem to be largely related to SI joint inflammation, though a disc herniation cannot entirely be ruled out. No red flag symptoms to suggest she needs emergent imaging. She does feel that she needs something more urgently for pain to take the edge off, I gave morphine 4 mg and Toradol 30 mg IM here. Discussed that for home use, anti-inflammatories and muscle relaxers would be the recommended medications. I also a.m. giving her prednisone, 9 day taper. Recommend primary care or spine clinic follow-up in the next week or 2 for recheck. She has a spine clinic that she has followed with previously. Discussed that if not improving she may need specialized imaging in the form of MRI to see if she has a recurrent disc herniation. Return any time for significant worsening or new symptoms such as fever, weakness, numbness bowel or bladder changes. Vital Signs Vital signs: Initial Vital Signs Temperature 97.8 F 04/16/25 06:32 Temperature Source Temporal Artery Scan 04/16/25 06:32 Pulse Rate 77 04/16/25 06:32 Respiratory Rate 16 04/16/25 06:32 Blood Pressure 121/80 04/16/25 06:32 Blood Pressure Mean 93 04/16/25 06:32 Blood Pressure Position Sitting 04/16/25 06:32 Pulse Oximetry 96 04/16/25 06:32 Oxygen Delivery Method Room Air 04/16/25 06:32 Vital Signs Temperature 97.8 F 04/16/25 06:32 Pulse Rate 77 04/16/25 06:32 Respiratory Rate 16 04/16/25 06:32 Blood Pressure 121/80 04/16/25 06:32 Pulse Oximetry 96 04/16/25 06:32 Oxygen Delivery Method Room Air 04/16/25 06:32 Temperature 97.8 F 04/16/25 06:32 Pulse Rate 77 04/16/25 06:32 Respiratory Rate 16 04/16/25 06:32 Blood Pressure 121/80 04/16/25 06:32 Pulse Oximetry 96 04/16/25 06:32 Oxygen Delivery Method Room Air 04/16/25 06:32 Medications Administered Medications: Discontinued Medications Generic Name Dose Route Start Last Admin Trade Name Freq PRN Reason Stop Dose Admin Ketorolac Tromethamine 30 mg 04/16/25 06:39 04/16/25 07:06 Ketorolac 30 Mg/Ml Inj IM 04/16/25 06:40 30 mg ONCE ONE Administration Morphine Sulfate 4 mg 04/16/25 06:39 04/16/25 07:06 Morphine 4 Mg/Ml Inj IM 04/16/25 06:40 4 mg ONCE ONE Administration Discharge Plan Discharge Clinical Impression: Sciatica Patient Disposition: Home, Self-Care Condition: Stable Instructions: Sciatica (ED) Additional Instructions: Prednisone taper as follows: 3 tablets daily for 3 days, then 2 tablets daily for 3 days, then 1 tablet daily for 3 days. For pain, ibuprofen 400 mg plus Tylenol 1000 mg 3 times daily with food. Flexeril, muscle relaxer as needed as well. Ice may be helpful as well. You can follow-up with primary care or with your spine clinic in the next week for recheck. If symptoms are not improving you may need additional imaging in the form of MRI to see if you have a recurrent disc herniation. If you develop new symptoms such as fevers, weakness or numbness, bowel or bladder changes, return to the ER. Prescriptions: No Action albuterol sulfate 90 mcg/actuation HFA aerosol inhaler 2 puff inhalation QID PRN hydroxyzine pamoate 50 mg capsule 50 mg PO QPM lamotrigine 150 mg tablet 150 mg PO QPM escitalopram oxalate 20 mg tablet 20 mg PO QPM alprazolam 0.25 mg tablet 0.25 mg PO QPM PRN Follow Up/Referrals: Provider,Not a Local [Primary Care Provider, Family Practice] Stand Alone Forms: [employer] Info Instructions
[2025-04-16] MEDS: MORPHINE 4 MG/ML INJ IM (07:06)
[2025-04-16] MEDS: KETOROLAC 30 MG/ML inj IM (07:06)
== END 2025-04-16 07:16 | disposition home or self-care (01) ==
LOC: ED 06:51
PROVIDERS: Emergency Provider Emergency Medicine
DX: M54.31 Sciatica, right side (principal)
CPT/HCPCS: 96372; 99283; 99284; J1885; J2270